=== PATIENT | male | born 1955 | race Caucasian/White ===

== ENCOUNTER 2018-11-22 06:10 | Inpatient (IN) | payer OTHER ==
[2018-11-22] VITALS (20 sets, daily range): BP systolic 147–198; BP diastolic 63–127
[~2018-11-22] VITALS: Ht 152.4 cm; Wt 74.8 kg
[2018-11-22] MEDS ORDERED: COREG25 MG PO (06:34)
[2018-11-22] MEDS ORDERED: SODIUM BICARB PO (06:34)
[2018-11-22] MEDS ORDERED: AMLODIPINE BESY10 MG PO (06:35)
[2018-11-22] MEDS ORDERED: ZANTAC 150MG T150 MG PO (06:35)
[2018-11-22] MEDS ORDERED: IMDUR 60 MG TAB60 M1 PO (06:35)
[2018-11-22] MEDS ORDERED: LIPITOR 20 MG T20 M1 PO (06:35)
[2018-11-22 06:45] LABS: HEMATOCRIT 37.5 % (42.0-52.0); HEMOGLOBIN 12.4 gm/dL (14.0-18.0); MCH 30.5 pg (26.0-34.0); MCHC 33.1 g/dL (28.0-37.0); MCV 92.1 fL (80.0-100.0); MPV 9.7 fl. (7.2-11.1); NUCLEATED RBCS 0 /100WBC; PLATELET COUNT* 339 thou/uL (150-400); RBC 4.07 mil/uL (4.50-6.00); RDW-CV 13.7 % (10.5-14.5); WBC 14.4 thou/uL (4.0-11.0)
[2018-11-22 07:02] LABS: CALCIUM 8.9 mg/dL (8.5-10.1)
[2018-11-22 07:05] LABS: INR 1.3; PROTIME 12.9 Seconds (9.20-11.50)
[2018-11-22 07:07] LABS: POTASSIUM 6.8 mmol/L (3.5-5.1)
[2018-11-22 07:09] LABS: ALBUMIN 3.6 g/dL (3.4-5.0); MAGNESIUM 1.8 mg/dL (1.8-2.4); TOTAL PROTEIN 8.5 g/dL (6.4-8.2); TROPONIN-I LEVEL 0.07 ng/mL (<0.06)
[2018-11-22 07:28] LABS: ABSOLUTE BASOPHILS 0.1 thou/uL (0.0-0.2); ABSOLUTE EOSINOPHILS 0.7 thou/uL (0.0-0.7); ABSOLUTE LYMPHOCYTES 1.3 thou/uL (0.8-5.3); ABSOLUTE MONOCYTES 0.6 thou/uL (0.0-1.2); ABSOLUTE NEUTROPHILS 11.7 thou/uL (1.6-8.1)
[2018-11-22 07:30] LABS: PLATELET ESTIMATE ADEQUATE
[2018-11-22 07:31] LABS: TOXIC GRANULATION 1+
[2018-11-22 09:57] LABS: CALCIUM 9.4 mg/dL (8.5-10.1); CREATININE 4.7 mg/dL (0.6-1.3); POTASSIUM 5.5 mmol/L (3.5-5.1)
--- NOTE | 2018-11-22 11:40 | NUR ---
PATIENT ADMITTED TO THE UNIT AT 1040. NO FAMILY PRESENT. ER KEMAL STATED THE WAS HERE BUT WALKED OFF TALKING ON A CELL PHONE AND DIDN'T RETURN. CHECKED ICU WAITING ROOM TWICE. PATIENT CONFUSED. ONLY ORIENTED TO PERSON AT THIS TIME. DENIES PAIN. CALM AND COOPERATIVE. ORIENTED TO ROOM. WATCHING TV. ADMISSION ASSESSMENT AND HISTORY COMPLETED TO BEST OF ABILITY AT THIS TIME. CONSULTS FOR NEPHROLOGY AND NEUROLOGY CALLED. PATIENT SCREENED POSITIVE FOR SEPSIS PROTOCOL. DR CATARINA SALAZAR, ORDERS GIVEN AND COMPLETED. PATIENT HAS AMPUTATED TOES TO LEFT FOOT AND WOUNDS TO TOES ON RIGHT FOOT. WOUND PHOTOS TAKEN. [facility].
--- NOTE | 2018-11-22 12:56 | NUR ---
UROLOGY IRON BENDER RETURNED CALL. SHE IS FIGURING OUT WHO WILL BE HERE TO PLACE CATHETER TODAY. PATIENT STILL UNABLE TO VOID, BLADDER SCAN READING 605.
--- NOTE | 2018-11-22 12:57 | EKG ---
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1955 Requested By: Debbi Enamorado Order Number: [id number] MD: Mart Hawkins Measurements Intervals [place] Rate: 47 P: [place]: QRS: 82 QRSD: 86 T: 133 QT: 520 QTc: 460 Interpretive Statements Sinus bradycardia Borderline right axis deviation RSR' in V1 or V2, probably normal variant Probable LVH with secondary repol abnrm No previous ECG available for comparison Electronically Signed On 11-22-2018 12:57:17 CDT by Mart Hawkins [email or web address] <ELECTRONICALLY SIGNED> By: Mart Hawkins MD, FACC 11/22/18 1257 [id number] 0656 Mart Hawkins MD, [facility] /EPI
[2018-11-22 15:35] LABS: URINE BILIRUBIN NEGATIVE (Negative); URINE BLOOD 3+ (Negative); URINE CLARITY CLEAR; URINE COLOR YELLOW; URINE GLUCOSE-RANDOM TRACE (Negative); URINE KETONES NEGATIVE (Negative); URINE LEUKOCYTES-REFLEX NEGATIVE (Negative); URINE NITRITE-REFLEX NEGATIVE (Negative); URINE PROTEIN 3+ (Negative); URINE UROBILINOGEN 0.2 E.U./dl (0.2-1.0)
[2018-11-22 15:47] LABS: BACTERIA-REFLEX None Seen /HPF (None Seen); CASTS None Seen /LPF (None Seen); CRYSTALS None Seen /LPF (None Seen); SQUAMOUS 0-3 Few /LPF (0-3); URINE RBC 0-2 Rare /HPF (0-2); URINE WBC-REFLEX 0-5 Rare /HPF (0-5)
[2018-11-22 15:57] LABS: AMP/METHAMP Negative (Negative); BARBITURATES Negative (Negative); BENZODIAZEPINES Negative (Negative); COCAINE Negative (Negative); METHADONE Negative (Negative); OPIATES Negative (Negative); PCP Negative (Negative); THC Negative (Negative)
--- NOTE | 2018-11-22 17:19 | NUR ---
PATIENT ASSESSMENT REMAINS UNCHANGED. PATIENT REMAINS ORIENTED TO SELF ONLY. NEUROLOGY ABLE TO SPEAK WITH PATIENT'S SIGNIFICANT OTHER. PATIENT BEGINNING TO HAVE THESE ISSUES SINCE SIGNIFICANT OTHER'S DAD . HAD STROKES IN THE PAST. RECORDS REQUESTED FROM [facility]. MRI OF HEAD TO BE COMPLETED THIS EVENING. PATIENT EATING DINNER, RELAXED AT THIS TIME.
[2018-11-23] VITALS (13 sets, daily range): BP systolic 147–174; BP diastolic 66–84
[2018-11-23 04:40] LABS: ABSOLUTE BASOPHILS 0.1 thou/uL (0.0-0.2); ABSOLUTE EOSINOPHILS 0.4 thou/uL (0.0-0.7); ABSOLUTE LYMPHOCYTES 0.8 thou/uL (0.8-5.3); ABSOLUTE NEUTROPHILS 6.5 thou/uL (1.6-8.1); BASOPHILS 1.3 %; EOSINOPHILS 4.2 %; HEMATOCRIT 27.5 % (42.0-52.0); LYMPHOCYTES 9.5 %; MCH 31.1 pg (26.0-34.0); MCHC 33.9 g/dL (28.0-37.0); MCV 91.7 fL (80.0-100.0); MONOCYTES 11.3 %; MPV 10.1 fl. (7.2-11.1); NUCLEATED RBCS 0 /100WBC; POLYS 73.7 %; RBC 2.99 mil/uL (4.50-6.00); RDW-CV 13.6 % (10.5-14.5); WBC 8.7 thou/uL (4.0-11.0)
[2018-11-23 05:01] LABS: HEMOGLOBIN 9.3 gm/dL (14.0-18.0); PLATELET COUNT* 221 thou/uL (150-400)
[2018-11-23 05:11] LABS: ALBUMIN 2.4 g/dL (3.4-5.0); CALCIUM 7.8 mg/dL (8.5-10.1); CREATININE 4.3 mg/dL (0.6-1.3); POTASSIUM 4.9 mmol/L (3.5-5.1); TOTAL BILIRUBIN 0.5 mg/dL (<0.1-1.0); TOTAL PROTEIN 5.6 g/dL (6.4-8.2)
--- NOTE | 2018-11-23 06:39 | NUR ---
Pt rested well overnight. One large loose stool early in shift. VSS. Still disoriented to place, time, situation. Pleasant and conversational; seems to recall remote events well. Inquired on at least two occasions if son was here. Will continue to monitor.
--- NOTE | 2018-11-23 09:50 | NUR ---
WOUND NURSE- PATIENT ADMITTED YESTERDAY WITH ALTERED MENTAL STATUS, HAD APPARENTLY BEEN FOUND ROAMING. HE REPORTS THAT THE ABRASIONS ON THE PLANTAR SURFACE OF BOTH FEET IS FROM WALKING FROM A BAR DOWNTOWN TO ONE OF THE [place], ALTHOUGH UNABLE TO SPECIFY WHEN. HE STATES THAT HE DID HAVE SHOES ON. HE HAS A HEALED METATARSAL AMPUTATION ON THE LEFT FOOT, WHICH HE REPORTS WAS PERFORMED IN AUGUST. WHEN ASKED IF DUE TO NON-HEALING WOUNDS, HE INSISTS THAT HE DID NOT, AND "WAS JUST TOLD THAT THEY (TOES) NEEDED TO COME OFF". RIGHT FOOT WITH SMALLER ABRASION ON DORSUM OF GREAT TOE, 1.2 X 0.6 X 0.1 CM. SLIGHTLY LARGER ABRASION ON PLANTAR SURFACE OF GREAT TOE, 1.8 X 1.4 X 0.1 CM. LEFT FOOT WITH ABRASION ON PLANTAR ASPECT OF FOOT AT 5TH METATARSAL HEAD, 1.8 X 0.6 X 0.1 CM. ALL WOUNDS DARK PINK, NO NECROTIC TISSUE, VERY MINIMAL SEROSANGUINEOUS DRAINAGE, NO ODOR. SURROUNDING SKIN PINK AND INTACT, LEFT FOOT SLIGHTLY MACERATED DUE TO BANDAID IN PLACE. NO ERYTHEMA, INDURATION OR FLUCTUANCE. ALL AREAS NON-TENDER. NO PEDAL EDEMA, FAINTLY PALPABLE PEDAL PULSES BILATERALLY. HEELS INTACT, NO ERYTHEMA. RIGHT FOOT WITH MODERATE AMOUNT OF DRIED DRAINAGE AND DIRT ON FOOT. BOTH FEET CLEANSED WELL WITH SKIN CLEANSER, RINSED WELL, WOUNDS IRRIGATED WITH SALINE AND OPEN AREAS COVERED WITH SMALL PIECE OF AQUACEL AG, SECURED WITH FOAM BORDERED DRESSINGS. MOISTURIZER TO INTACT SKIN, LEGS ELEVATED ON PILLOW WITH HEELS SUSPENDED OFF OF BED. BRIEFLY DISCUSSED WOUND CARE, PATIENT REMAINS SOMEWHAT CONFUSED. PLAN- -REMIND/ASSIST PATIENT TO CHANGE POSITION FREQUENTLY. -KEEP LEGS ELEVATED ON PILLOWS, HEELS SUSPENDED OFF OF BED. -WOUND CARE ORDERED.
--- NOTE | 2018-11-23 14:38 | CON ---
[address] [address] CONSULTATION Name: VAMSIDOT CUEVAS Room: [address] ADM IN M.R.#: [id number] Admission: 11/22/18 Attend Phys: Shawn Garcia MD Discharge: Date of : 59 Report #: [id number] THIS REPORT FOR: //name// CC: Shawn Garcia [facility] physician/PCP DATE OF SERVICE: 11/22/2018 REQUESTING PHYSICIAN: Dr. Rajput. REASON FOR CONSULTATION: Acute kidney injury. HISTORY OF PRESENT ILLNESS: The patient is a 63-year-old gentleman, who was brought here by the police because he was confused. Apparently, his called the police, but is not here and she does not provide us any history. Based on his medications and his findings, we can guess that he has chronic kidney disease, unknown stage due to probably diabetes, he also has diabetes mellitus type 2 and hypertension. I am not able to guess any other medical conditions at this point. Hopefully, at some point, will come and will talk to us and will provide more medical history. When he was evaluated in the Emergency Room, he was found to have lactic acidosis. He was hyperkalemic, potassium was 6.8, it is down to 5.5 now. His creatinine was 5.0, it is down to 4.7 now. Carbon dioxide was 16, is up to 20 now. He had lactic acidosis, original level was 8.0, now is down to 1.2. His white count was 14.4 thousand with 81% segs. His urinalysis was not received. His chest x-ray was unremarkable except for possible right lower lobe atelectasis versus pneumonitis. He was started on IV fluids here. He has given IV Protonix, IV Rocephin. PAST MEDICAL HISTORY: Again, best of our understanding, he has: 1. Chronic kidney disease, unknown stage. 2. Diabetes mellitus type 2. 3. Hypertension. SOCIAL HISTORY: Unknown. FAMILY HISTORY: Unknown. REVIEW OF SYSTEMS: Unreliable due to his confusion. PHYSICAL EXAMINATION: GENERAL: The patient is alert, awake, but totally disoriented. VITAL SIGNS: His blood pressure is 180/80, [place] 63[place] [address] CONSULTATION Name: DOT AGUSTIN Room: [address] IN [facility].#: [id number] Admission: 11/22/18 Attend Phys: Shwan Garcia MD Discharge: Date of : 59 Report #: [id number] HEENT: Pupils are round. NECK: Supple. LUNGS: Clear. CARDIOVASCULAR: Regular rate. ABDOMEN: Soft. EXTREMITIES: Lower extremities, no edema. He has abrasion to the base of the fifth metatarsal on the left and abrasion to the base of the first metatarsal on the right. ASSESSMENT: 1. Chronic kidney disease, unknown stage, likely stage 3/4. 2. Acute kidney injury likely due to volume depletion. 3. Hyperkalemia, likely due to acute kidney injury. 4. Hypertension. 5. Diabetes mellitus type 2. 6. Peripheral artery disease. PLAN: 1. Continue with IV fluids. 2. Obtain CT of his abdomen without contrast. 3. Try to obtain medical records and contact the family. Discussed with ICU nurse. More than 35 minutes spent on this consultation. <ELECTRONICALLY SIGNED> By: Rafi Stanton MD 11/23/18 1438 1157 [id number] Stanton MD /[facility]
--- NOTE | 2018-11-23 17:50 | NUR ---
PATIENT ASSESSMENT REMAINS STABLE. ORIENTED TO PERSON ONLY. SLEPT ON AND OFF MOST OF SHIFT. DENIES PAIN/ACUTE ISSUES. GOOD APPETITE. NO NEW CONCERNS NOTED.
[2018-11-24 00:08] VITALS: BP 162/69
[2018-11-24 03:55] LABS: ABSOLUTE BASOPHILS 0.1 thou/uL (0.0-0.2); ABSOLUTE EOSINOPHILS 0.5 thou/uL (0.0-0.7); ABSOLUTE MONOCYTES 0.7 thou/uL (0.0-1.2); ABSOLUTE NEUTROPHILS 5.3 thou/uL (1.6-8.1); BASOPHILS 1.2 %; EOSINOPHILS 7.1 %; HEMATOCRIT 26.8 % (42.0-52.0); HEMOGLOBIN 9.1 gm/dL (14.0-18.0); LYMPHOCYTES 12.5 %; MCH 31.2 pg (26.0-34.0); MCHC 34.1 g/dL (28.0-37.0); MCV 91.5 fL (80.0-100.0); MONOCYTES 9.8 %; MPV 10.1 fl. (7.2-11.1); NUCLEATED RBCS 0 /100WBC; PLATELET COUNT* 211 thou/uL (150-400); POLYS 69.4 %; RBC 2.93 mil/uL (4.50-6.00); RDW-CV 13.8 % (10.5-14.5); WBC 7.6 thou/uL (4.0-11.0)
[2018-11-24 04:05] VITALS: BP 167/74
[2018-11-24 04:27] LABS: ALBUMIN 2.3 g/dL (3.4-5.0); CALCIUM 7.3 mg/dL (8.5-10.1); CREATININE 4.4 mg/dL (0.6-1.3); MAGNESIUM 1.4 mg/dL (1.8-2.4); PHOSPHORUS* 3.8 mg/dL (2.5-4.9); POTASSIUM 4.4 mmol/L (3.5-5.1); TOTAL BILIRUBIN 0.3 mg/dL (<0.1-1.0); TOTAL PROTEIN 5.9 g/dL (6.4-8.2)
--- NOTE | 2018-11-24 06:00 | NUR ---
Received report and assumed care of patient approx 1914. Patient at time of report was alert and oriented to self only. However, as night has progressed, this morning he is oriented to person, place, and partially situation. unable to state current year. Patient denies pain and discomfort this shift. Viveros remains intact, and draining to DD light yellow urine. Patient voices no concerns and has been very pleasant. Call light within reach
[2018-11-24 08:00] VITALS: BP 183/81
--- NOTE | 2018-11-24 10:03 | NUR ---
RECEIVED REPORT FROM DU AND ASSUMED CARE OF PT @ 9167.PT IS A/O X3 BUT CONFUSED AND FORGETFUL AT TIMES. VSS,TRACING SB ON THE MONITOR.IV PATENT WITH IV FLUIDS INFUSING PER ORDERS.PT IS CALM AND COOPERATIVE WITH NO C/O PAIN.CALL LIGHT AND FALL PRECAUTIONS IN PLACE.WILL CONTINUE TO MONITOR.
[2018-11-24 12:06] VITALS: BP 122/62
--- NOTE | 2018-11-24 14:59 | NUR ---
Pt is A&O, some confusion. Pt states that he lives at home with his . completes IADLS and assists Pt with ADLs. Pt states that he can barely ambulate, and uses a walker. No other DME. No hx of HH or SNF. Pt is hopeful that he will be able to [place]. [facility] to assess Pt for [place] NASEEM. CM attempted to contact Pt's , left VM. Following.
[2018-11-24 16:11] LABS: GLYCOHEMOGLOBIN (HGB A1C) 5.4 % (4.8-5.6)
[2018-11-24 16:16] VITALS: BP 142/68
--- NOTE | 2018-11-24 17:35 | EKG ---
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1955 Requested By: Wan Holman Order Number: [id number] MD: Mart Hawkins Measurements Intervals [place] Rate: 51 P: 53 TN: 167 QRS: 46 QRSD: 85 T: 132 QT: 462 QTc: 426 Interpretive Statements Sinus rhythm Probable LVH with secondary repol abnrm Compared to ECG 11/22/2018 06:56:04 Sinus bradycardia no longer present Electronically Signed On 11-24-2018 17:35:46 CDT by Mart Hawkins [email or web address] <ELECTRONICALLY SIGNED> By: Mart Hawkins MD, [facility] 11/24/18 1735 1329 1329 Mart Hawkins MD, [facility] /EPI
--- NOTE | 2018-11-24 18:42 | NUR ---
PT CONTINUE TO BE SB ON THE MONITOR.CARVEDILOL HELD THIS EVENING.NO C/O PAIN.IV'S PATENT WITH IV FLUIDS INFUSING PER ORDERS.IV ANTIBIOTICS GIVEN.JOSEPH SECURE AND PATENT.HOURLY ROUNDING COMPLETED FOR PT SAFETY.CALL LIGHT AND FALL PRECAUTIONS IN PLACE. WILL CONTINUE TO MONITOR FOR DURATION OF SHIFT.
--- NOTE | 2018-11-24 20:00 | NUR ---
RECEIVED REPORT AND ASSUMED CARE OF PT, ASSESSMENT COMPLETED. PT CONFUSED BUT PLEASANT AND COOPERATIVE. WOUND TO RT FOOT NOTED WITH FOAM DRSG INTACT. TELEMETRY ON SHOWING SB. WILL CONT TO MONITOR AND ASSIST NEEDED.
--- NOTE | 2018-11-25 | NUR ---
TELEMETRY REMOVED AND CHANGED TO MED/SURG PT ORDERED.
[2018-11-25 00:40] VITALS: BP 150/70
[2018-11-25 05:17] LABS: CREATININE 4.8 mg/dL (0.6-1.3); MAGNESIUM 1.8 mg/dL (1.8-2.4); PHOSPHORUS* 3.8 mg/dL (2.5-4.9); POTASSIUM 4.3 mmol/L (3.5-5.1)
[2018-11-25 05:43] LABS: CHOLESTEROL 73 mg/dL (<200); HDL CHOLESTEROL 33 mg/dL (>40); LDL CHOLESTEROL 31 mg/dL (<100); SERUM ASSESSMENT Clear; TC:HDL 2.2 Ratio (Not establshd); TRIGLYCERIDE 48 mg/dL (<150); VLDL 10 mg/dL (<40)
--- NOTE | 2018-11-25 05:55 | NUR ---
SLEPT WELL TONIGHT. NO CHANGE IN ASSESSMENT. HS GOALS OF REST AND SAFETY ACHIEVED. HOURLY ROUNDING OBSERVED.
[2018-11-25 08:00] VITALS: BP 171/78
--- NOTE | 2018-11-25 10:34 | NUR ---
RECEIVED REPORT FORM JOSE ENRIQUE AND ASSUMED CARE OF PT @ 8086.PT A/O X3 AND CONFUSED.VSS,MED-SURG STATUS,JOSEPH SECURE AND PATENT.IV PATENT WITH IV FLUIDS INFUSING PER ORDERS.PT IS CALM AND COOPERATIVE WITH NO C/O PAIN.PT IS UP WITH SBA TO BATHROOM.CALL LIGHT AND FALL PRECAUTIONS IN PLACE.WILL CONTINUE TO MONITOR.
[2018-11-25 16:25] VITALS: BP 162/64
--- NOTE | 2018-11-25 17:39 | NUR ---
VSS.MED-SURG STATUS.PT REMAINS ON ROOM AIR.PT PROGHRESSING TOWARDS GOALS.IV PATENT WITH IVF INFUSING PER ORDERS.NO C/O PAIN.PT REMAINS CONFUSED BUT COOPERATIVE.HOURLY ROUNDING COMPELTED FOR PT SAFETY.CALL LIGHT AND FALL PRECAUTIONS IN PLACE.WILL CONTINUE TO MONITOR FOR DURATION OF SHIFT.
[2018-11-25 20:00] VITALS: BP 155/68
[2018-11-26] VITALS: BP 152/73
--- NOTE | 2018-11-26 06:08 | NUR ---
ASSUMED CARE OF PT AFTER REPORT AT 1930. PT A&OX2. NOT ORIENTED TO PLACE AND TIME. VSS. PHYSICAL ASSESSMENT COMPLETED AND CHARTED. PT ON RA WITH 97% O2 SAT. PT ON MEDSURG STATUS. PT WITH JOSEPH TO DEPENDENT DRAIN. PT RESTED WELL ON BED. CALL LIGHT WITHIN REACH
[2018-11-26 06:32] LABS: ALBUMIN 1.9 g/dL (3.4-5.0); CALCIUM 7.3 mg/dL (8.5-10.1); CREATININE 4.9 mg/dL (0.6-1.3); PHOSPHORUS* 3.7 mg/dL (2.5-4.9); POTASSIUM 4.4 mmol/L (3.5-5.1)
[2018-11-26 08:00] VITALS: BP 163/80
--- NOTE | 2018-11-26 08:00 | NUR ---
ASSUMED PT ARE AT 0700, PT LYING IN BED, FALL PRECAUTIONS IN PLACE. A&O TO SELF AND SITUATION BUT UNABLE TO STATE DATE OR PLACE. UP WITH ASSIST X1 AND WALKER, LS CTA, VSS, RA, MED SURG STATUS. JOSEPH CATH PATENT AND DRAINING LIGHT YELLOW URINE. WOUNDS TO LEFT AND RIGHT FOOT, DRESSING IN PLACE. PT DENIES ANY PAIN OR SOA AT THIS TIME. WILL CONT POC.
[2018-11-26 16:35] VITALS: BP 151/68
--- NOTE | 2018-11-26 19:21 | NUR ---
PT UP WITH WALKER AND PT THIS SHIFT, A&O X2-3, VSS, CONT ON MED SURG STATUS, HOURLY ROUNDING COMPLETED. ALL MEDS GIVEN DIRECTED, ASSESSMENT CHARTED.
[2018-11-26 20:00] VITALS: BP 159/79
[2018-11-27 04:00] VITALS: BP 161/71
[2018-11-27 05:09] LABS: ABSOLUTE BASOPHILS 0.1 thou/uL (0.0-0.2); ABSOLUTE EOSINOPHILS 0.6 thou/uL (0.0-0.7); ABSOLUTE LYMPHOCYTES 1.2 thou/uL (0.8-5.3); ABSOLUTE MONOCYTES 0.8 thou/uL (0.0-1.2); ABSOLUTE NEUTROPHILS 3.9 thou/uL (1.6-8.1); BASOPHILS 1.8 %; EOSINOPHILS 9.1 %; HEMATOCRIT 23.7 % (42.0-52.0); HEMOGLOBIN 8.1 gm/dL (14.0-18.0); LYMPHOCYTES 17.4 %; MCH 31.1 pg (26.0-34.0); MCHC 34.1 g/dL (28.0-37.0); MCV 91.3 fL (80.0-100.0); MPV 9.7 fl. (7.2-11.1); NUCLEATED RBCS 0 /100WBC; PLATELET COUNT* 236 thou/uL (150-400); POLYS 59.7 %; RBC 2.59 mil/uL (4.50-6.00); RDW-CV 13.6 % (10.5-14.5); WBC 6.6 thou/uL (4.0-11.0)
[2018-11-27 05:20] LABS: CALCIUM 7.6 mg/dL (8.5-10.1); CREATININE 4.7 mg/dL (0.6-1.3); POTASSIUM 4.2 mmol/L (3.5-5.1)
--- NOTE | 2018-11-27 05:40 | NUR ---
ASSUMED CARE OF PT AFTER REPORT AT 1930. PT A&OX2. NOT ORIENTED TO PLACE AND TIME. FORGETFUL & CONFUSED AT TIMES. VSS. PHYSICAL ASSESSMENT COMPLETED AND CHARTED. PT ON RA. PT ON MEDSURG STATUS. PT WITH JOSEPH TO DEPENDENT DRAIN. PT DENIES ANY PAIN OR DISCOMFORT. HOURLY ROUNDING OBSERVED. CALL LIGHT WITHIN REACH.
[2018-11-27 08:00] VITALS: BP 166/75
[2018-11-27 17:25] VITALS: BP 150/72
--- NOTE | 2018-11-27 17:50 | NUR ---
A&O X2-3, VSS, RA, REMAINS MED SURG STATUS, UP WITH ASSIST X1 AND WALKER. JOSEPH CATH PATENT AND DRAINING LIGHT YELLOW URINE, CREAT LEVEL TRENDING DOWN. HOURLY ROUNDING COMPLETED, ASSESSMENT COMPLETED AND DOCUMENTED.
[2018-11-27 20:00] VITALS: BP 161/73
[2018-11-28 04:00] VITALS: BP 165/68
[2018-11-28 05:23] LABS: ABSOLUTE BASOPHILS 0.1 thou/uL (0.0-0.2); ABSOLUTE EOSINOPHILS 0.6 thou/uL (0.0-0.7); ABSOLUTE LYMPHOCYTES 1.2 thou/uL (0.8-5.3); ABSOLUTE MONOCYTES 0.8 thou/uL (0.0-1.2); ABSOLUTE NEUTROPHILS 4.2 thou/uL (1.6-8.1); BASOPHILS 1.8 %; EOSINOPHILS 8.7 %; HEMATOCRIT 23.8 % (42.0-52.0); HEMOGLOBIN 8.3 gm/dL (14.0-18.0); LYMPHOCYTES 17.1 %; MCH 31.5 pg (26.0-34.0); MCHC 34.8 g/dL (28.0-37.0); MCV 90.6 fL (80.0-100.0); MONOCYTES 11.5 %; MPV 9.5 fl. (7.2-11.1); NUCLEATED RBCS 0 /100WBC; PLATELET COUNT* 254 thou/uL (150-400); POLYS 60.9 %; RBC 2.62 mil/uL (4.50-6.00); RDW-CV 13.8 % (10.5-14.5); WBC 6.8 thou/uL (4.0-11.0)
[2018-11-28 05:54] LABS: CALCIUM 7.8 mg/dL (8.5-10.1); CREATININE 4.8 mg/dL (0.6-1.3); PHOSPHORUS* 3.7 mg/dL (2.5-4.9); POTASSIUM 4.3 mmol/L (3.5-5.1)
--- NOTE | 2018-11-28 06:33 | NUR ---
ASSUMED CARE OF PT AFTER REPORT AT 1930. PT A&OX4. FORGETFUL. CONFUSED AT TIMES. VSS. PHYSICAL ASSESSMENT COMPLETED AND CHARTED. PT ON RA. PT ON MEDSURG STATUS. PT WITH JOSEPH TO DEPENEDENT DRAIN. PT DENIES ANY PAIN OR DISCOMFORT. NIH CHARTED. PT RESTED WELL ON BED. CALL LIGHT WITHIN REACH.
[2018-11-28 11:58] VITALS: BP 170/82
[2018-11-28 14:30] VITALS: BP 145/89
--- NOTE | 2018-11-28 15:18 | NUR ---
ASSUMED CARE OF PATIENT THIS AM AT 0730. PATIENT WAS DROWSY THIS AM BUT EASILY AWAKENED. HE DENIES PAIN. MEDICATIONS GIVEN PER ORDER. PATIENT HAS BEEN SLEEPING OFF AND ON TODAY. OPAL IS TO DD. PATIENT SAID THAT HE IS EAGER FOR DISCHARGE, HOWEVER HE HAS NOT BEEN ABLE TO CONTACT ANY OF HIS FAMIY MEMBERS. ACCUCHECKS HAVE BEEN LESS THAN 150. PATIENT HAS BEEN UP WITH ASSIST. BED ALARM IS N AND CALL LIGHT IS IN REACH.
[2018-11-28 20:00] VITALS: BP 166/77
[2018-11-29] VITALS: BP 167/75
[2018-11-29 05:14] LABS: HEMATOCRIT 25.2 % (42.0-52.0); HEMOGLOBIN 8.9 gm/dL (14.0-18.0); MCH 31.9 pg (26.0-34.0); MCHC 35.2 g/dL (28.0-37.0); MCV 90.9 fL (80.0-100.0); MPV 8.8 fl. (7.2-11.1); RBC 2.78 mil/uL (4.50-6.00); RDW-CV 13.8 % (10.5-14.5); WBC 8.9 thou/uL (4.0-11.0)
[2018-11-29 05:42] VITALS: BP 159/68
[2018-11-29 05:42] LABS: ALBUMIN 2.2 g/dL (3.4-5.0); CREATININE 5.1 mg/dL (0.6-1.3); MAGNESIUM 1.6 mg/dL (1.8-2.4); PHOSPHORUS* 3.5 mg/dL (2.5-4.9); POTASSIUM 4.4 mmol/L (3.5-5.1); TOTAL BILIRUBIN 0.4 mg/dL (<0.1-1.0)
--- NOTE | 2018-11-29 06:43 | NUR ---
PT ALERT CONFUSED. AT 0215 PT NOTED TO BE OUT OF ROOM. PT SEEN IN PARKING LOT AREA. HOUSE SUPP, CHARGE NURSE, SECURITY NOTIFIED. PT RETURN TO ROOM AT 0315. REASSESSED AND FOUND UNCHGD FROM INITAL ASSESSMENT.
[2018-11-29 08:09] VITALS: BP 173/83
--- NOTE | 2018-11-29 09:57 | NUR ---
ASSUMED CARE OF PT THIS AM AROUND 714-MS STATUS IN PLACE INDICATED- UPON ASSESSMENT PT NOTED TO BE RESTING IN BED- PT A&O X2 WITH NOTED INTERMITENT CONFUSSION NOTED- SBA WITH TRANSFERS USING RW- CONTINENT OF BOWEL, JOSEPH IN PLACE, D/D CLEAR YELLOW URINE- LCTA, RESP EVEN AND UN-LABORED- VSS, O2 SAT 97% ON RA- ABD SOFT/ROUND/NON-TENDER, BS X4 QUADS- LAST BM REPORTED 11/28/18- IV NOTED TO RIGHT HAND INTACT AND SL- NIH THIS AM NOTED AT 2- GOOD PO INTAKE NOTED THIS AM, BS MONITORED ORDERED- WORKING WITH THERPIES PRESCIBED. TOLERTAING WELL- DENIES ANY C/O PAIN/DISCOMFORT AT THIS TIME- CALL LIGHT AND PERSONAL BELONGINGS WITH IN REACH- HOURLY ROUNDS IN PLACE R/T SAFETY/NEEDS- ALL NEEDS MET AT THIS TIME-WCTM
[2018-11-29 12:45] VITALS: BP 167/76
--- NOTE | 2018-11-29 13:30 | NUR ---
Nutrition: screen for LOS. Pt noted to be somewhat confused. Nsg reported good po intake this am, no other intake records. Wt up from admit. Albumin ang LFT's low. Meds reviewed. Pt with wounds to rt foot, awaiting evaluation. Physician noted malnutrition, defer dx. Assessed at low nutrition risk at this time. Rec offer snacks/supplements PRN.
[2018-11-29 16:30] VITALS: BP 135/69
--- NOTE | 2018-11-29 17:14 | NUR ---
ASSUMED CARE AT 1550, PT TRANSFERRED FROM ROOM 204. REPORT FROM BART COKER. PT IS ALERT AND DENIES PAIN. IV ABX INFUSING. PT IS ON ROOM AIR, VSS. ACCU CHECK ACHS. NIH SCALE DONE QS. PT IS FALL RISK, BED ALARM ON. PT IS UP STANDBY ASSIST. IV IN RIGHT HAND, SL. SIMPSONEY IN PLACE WITH ADEQAUTE OUTPUT. SEE ASSESSMENT AND VITALS FOR OTHER DETAILS. CALL LIGHT WITHIN REACH. WILL CONTINUE PLAN OF CARE
[2018-11-29 21:00] VITALS: BP 157/75
[2018-11-30] VITALS: BP 149/67
[2018-11-30 04:03] VITALS: BP 158/71
[2018-11-30 04:43] LABS: HEMATOCRIT 22.8 % (42.0-52.0); HEMOGLOBIN 7.9 gm/dL (14.0-18.0); MCH 31.5 pg (26.0-34.0); MCHC 34.7 g/dL (28.0-37.0); MCV 90.6 fL (80.0-100.0); MPV 9.4 fl. (7.2-11.1); RBC 2.51 mil/uL (4.50-6.00); RDW-CV 13.7 % (10.5-14.5); WBC 6.5 thou/uL (4.0-11.0)
[2018-11-30 04:47] LABS: CALCIUM 7.6 mg/dL (8.5-10.1); PHOSPHORUS* 3.4 mg/dL (2.5-4.9); POTASSIUM 4.1 mmol/L (3.5-5.1)
--- NOTE | 2018-11-30 05:49 | NUR ---
PT ALERT AND ORIENTED. CONFUSED AND FORGETFUL. PT SLEPT THROUGH SHIFT. MEDS GIVEN PER EMAR. PT TO JOSEPH FOR URINE. PT DID NOT GET OUT OF BED THIS SHIFT. FALL PRECAUTION IN PLACE. HOURLY ROUNDINGS MADE. CALL LIGHT WITHIN REACH. WILL CONTINUE TO MONITOR.
[2018-11-30 07:12] VITALS: BP 161/73
--- NOTE | 2018-11-30 15:00 | NUR ---
CM SPOKE WITH PT. HE WAS ALERT. EXPLAINED WE HAD NOT BEEN ABLE TO GET AHOLD OF HIS S.O.,IMAN. THIS CM TRIED TODAY AT NUMBER LISTED AND SAID VOIC MAIL BOX WAS FULL. HE SAID SHE DIDN'T HAVE ANY OTHER NUMBER TO GET AHOLD OF HER. ASKED IF THERE WAS ANYONE I COULD CONTACT. HE SAID HIS DAUGHTER GOES TO SCHOOL. ASKED HOW OLD SHE WAS. HE SAID 11. HE THEN PULLED OUT A PIECE OF PAPER FROM HIS GOWN POCKET. IT HAD HIS DAD'S NUMBERS (2), HIS SISTER VANITA AND S-I-L,SELVIN. HE SAID VANITA CAN'T SPEAK. TRIED CALLING SELVIN AT [phone]-MESSAGE SAID SHE WAS NOT ACCEPTING CALLS AT THIS TIME. TRIED HIS DAD-KASANDRA'S [phone] SAID VM BOX WAS FULL. SECOND [phone] WAS A GENERIC VM. I LEFT A BRIEF MESSAGE ASKING HIM TO CALL ME. DID NOT LEAVE PT.INFORMATION ON VM. CM CALLED [employer]. HE HAD EMAILED ASKING IF ANYONE IN FAMILY HAD DPOA. TOLD HIM TO MY KNOWLEDGE THEY DID NOT. EXPLAINED THE INABILITY TO GET AHOLD OF ANYONE AT NUMBERS LISTED ABOVE.
--- NOTE | 2018-11-30 15:28 | NUR ---
ASSESSMENT COMPLETE. PT HAS NOT HAD ANY CONCERNS THROUGHOUT THE DAY. DRESSING CHANGES DONE. PT HAD SHOWER THIS AM. ACCU CHECK ACHS. PT IS FALL RISK, BED ALARM ON. JOSEPH IN PLACE WITH ADEQUATE OUTPUT. DENIES PAIN AND N/V. SEE ASSESSMENT AND VITALS FOR OTHER DETAILS. CALL LIGHT WITHIN REACH, WILL CONTINUE PLAN OF CARE
[2018-11-30 15:39] VITALS: BP 140/68
[2018-11-30 19:30] VITALS: BP 149/76
[2018-12-01 04:20] LABS: ALBUMIN 2.1 g/dL (3.4-5.0); CALCIUM 7.6 mg/dL (8.5-10.1); PHOSPHORUS* 3.9 mg/dL (2.5-4.9); POTASSIUM 4.2 mmol/L (3.5-5.1)
--- NOTE | 2018-12-01 05:21 | NUR ---
PT ALERT AND ORIENTED THIS SHIFT. PT LESS CONFUSED THAN PREVIOUS NIGHT. VSS ON RA. PT SLEPT MOST OF SHIFT. PT UNAHPPY THAT HE HAVEN'T HEARD FROM . I CALLED 'S PHONE NUMBER SEVERAL TIMES BUT NO ANSWER. VOICE MSG FULL, SO I COULDN'T LEAVE A MSG. MEDS GIVEN PER EMAR. CALL LIGHT WITHIN REACH. PT VERY COOPERATIVE AND PLEASANT. HOURLY ROUNDINGS MADE. WILL CONTINUE TO MONITOR.
[2018-12-01 08:00] VITALS: BP 163/77
--- NOTE | 2018-12-01 15:41 | NUR ---
ATTEMPTED TO CALL DANNY/S.O. AT [phone]. MESSAGE SAID VOICE MAIL BOX WAS FULL. WAS ABLE TO REACH PT.S FATHER,KASANDRA AT [phone]. HE WAS HARD OF HEARING. MANY CHILDREN SCREAMING,YELLING IN THE BACKROUND. HE PUT SELVIN ON THE PHONE. SHE SAID SHE IS PT.'S SISTER. CORRECT PHONE NUMBER FOR HER IS [phone]. SHE WAS AWARE HER BROTHER WAS IN THE HOSPITAL. EXPLAINED WE COULD NOT GET AHOLD OF DANNY. SHE SAID SHE WOULD TRY TO CALL HER. SELVIN CALLED BACK AND SAID HER DAD SAID DANNY DID NOT WANT PT.AT HER HOUSE ANYMORE. SHE SAID DAD HAS AN EXTRA ROOM THAT PT.COULD STAY IN. SELVIN LIVES THERE ALSO . SHE WORKS FROM [employer]. SHE GOT OFF EARLY TODAY. SHE RUNS THE HOUSE-CLEANS,COOKS, SHOPS ETC. TOLD HER PT.MAY BE READY FOR DISCHARGE EARLY TOMORROW. SHE SAID SHE WOULD TRY TO CALL ON HER BREAK TOMORROW. ASKED SELVIN ABOUT THE 11 YR OLD DAUGHTER, PT.MENTIONED TO ME YESTERDAY. SHE SAID SHE IS DANNY'S DAUGHTER BUT NOT HER BROTHER'S BIOLOGICAL CHILD. HE HAS BEEN WITH DANNY FOR QUITE AWHILE AND THE GIRL CALLS PT.DAD AND PT.CALLED HER HIS DAUGHTER. CM WILL FOLLOW.
--- NOTE | 2018-12-01 16:03 | NUR ---
SHIFT NOTE - PT RESTING IN BED. PT WORKED WITH PT THIS AM. OPAL TO ANDRADE. BED ALARM ON. WILL CONTINUE TO MONITOR.
[2018-12-01 16:38] VITALS: BP 155/71
--- NOTE | 2018-12-01 17:40 | CON ---
[address] [address] CONSULTATION Name: DOT AGUSTIN Room: [address] IN M.R.#: [id number] Admission: 11/22/18 Attend Phys: Shawn Garcia MD Discharge: Date of : 59 Report #: [id number] THIS REPORT FOR: //name// CC: Shawn Garcia [facility] physician/PCP DATE OF SERVICE: 11/22/2018 HISTORY OF PRESENT ILLNESS: The patient is a 63-year-old male with confusion. I spoke to the patient and he told me that he is homeless, that his and her son put him out of the house. I then spoke with his partner who told me that they have been together for 13 years. He is not homeless and no one has put him out of the house. In fact, her son does not even live in the home. He lives in [place]. The patient's partner has an 11-year-old daughter. She states that in July after her father , the patient became very confused. The patient and her father were not very close. However, after that he seemed to change. In fact, he was even seen at [facility]. Some type of imaging study was done and showed a small stroke, but they were told that this small stroke would not cause the problems that he was having. The patient's partner states that that sometimes during the day, he seems to be perfectly normal and then by the evening, he gets more confused. In fact, her mother came to visit and he invited her in the home even though she was already standing inside the house. She states that he has a list of things wrong with him including congestive heart failure and peripheral vascular disease. He lost his toes on his left foot to peripheral vascular disease. He did have diabetes, but his last hemoglobin A1c was in a normal range, so he is no longer on medication. She attributes this to not allowing him to eat sweets. She is very concerned about him and was tearful on the phone. PAST MEDICAL HISTORY: Peripheral vascular disease, hyperlipidemia, congestive heart failure, stroke. PAST SURGICAL HISTORY: Unknown. MEDICATIONS: Coreg 25 mg b.i.d., isosorbide 60 mg daily, ranitidine 150 mg b.i.d., atorvastatin 20 mg at bedtime, amlodipine 10 mg daily. ALLERGIES: None. VITAL SIGNS: Temperature 36.8, pulse rate 65, respiratory rate 26, blood pressure 177/70, bedside pulse oximetry 96% on 2 [place] [address] CONSULTATION Name: DOT AGUSTIN Room: [address]#: [id number] Admission: 11/22/18 Attend Phys: Shawn Garcia MD Discharge: Date of : 59 Report #: [id number] LABORATORY DATA: Hematology: White blood cell count 14.4, hemoglobin 12.4, hematocrit 37.5, MCV 92.1, platelet count 339,000. INR 1.3. Urinalysis 3+ protein, 3+ blood, trace glucose. Chemistry: Sodium 140, potassium 5.5, chloride 108, carbon dioxide 20, BUN 30, creatinine 4.7, GFR 13, glucose 114. DIAGNOSTIC DATA: Imaging studies of the head and spine show moderate microvascular disease and several lacunar infarcts in the left frontal horn and right central cerebellar head region. All of these changes are chronic. He has also had imaging studies of the cervical spine, thoracic and lumbar spine. There is nothing other than degenerative changes seen. NEUROLOGIC: The patient knew that it was 2019. He did not know what city he was in, but knew that he was in [place] and in the [place]. Immediate recall was 3/3 objects, remote recall was 1/3 objects. He was able to spell "world" forwards, but transposed the "r" when spelling it backwards. Cranial nerves 2-12 are grossly intact. Motor exam demonstrates symmetrical strength in the extremities. The right plantar response is mute. The left toe is absent. Coordination and gait were not tested. IMPRESSION: This patient either has dementia or it is possible that he could also have a severe depression. He mentioned to me several times that he thinks he is here in the hospital to be put down. His partner also told me that he had mentioned some other morbid things to her as well. I am going to do a dementia workup with B12 and TSH, but he may need a Telepsychiatry consult as well. I have also ordered an electroencephalogram. For example, if the electroencephalogram were normal, there is the possibility that there is significant component of depression. However, if the electroencephalogram demonstrates slowing, then this is more supportive of a diagnosis of dementia and of course, he could have both dementia and depression. I thank you for your kind referral of the patient. Dr. Jha will be following the patient as of Wednesday. <ELECTRONICALLY SIGNED> By: Saida Whitmore DO 12/01/18 1740 1604 020Tab Whitmore DO /nt
[2018-12-01 19:50] VITALS: BP 150/71
--- NOTE | 2018-12-02 04:30 | NUR ---
PATIENT HAS REMAINED ALERT AND ORIENTED X 2-3 THIS SHIFT AND RESTING QUIETLY ON HOURLY ROUNDS. TURNING SELF IN BED. HAS NOT BEEN UP. DRESSING LEFT FOOT CLEAN AND DRY. NO PAIN REPORTED. IV ANTIBIOTICS PER ORDERS. VITAL SIGNS STABLE. CONTINUE TO MONITOR.
[2018-12-02 05:59] LABS: ALBUMIN 2.2 g/dL (3.4-5.0); CALCIUM 7.9 mg/dL (8.5-10.1); CREATININE 5.7 mg/dL (0.6-1.3); PHOSPHORUS* 4.3 mg/dL (2.5-4.9); POTASSIUM 4.4 mmol/L (3.5-5.1)
[2018-12-02 07:35] VITALS: BP 170/76
[2018-12-02 16:45] VITALS: BP 144/68
--- NOTE | 2018-12-02 17:00 | NUR ---
ASHER SPOKE WITH PT. EARLIER TODAY. TOLD HIM I STILL COULD NOT GET AHOLD OF HIS S.O. BUT I DID SPEAK WITH HIS SISTER. SHE SAID HE CAN COME TO STAY IN EXTRA ROOM AT HIS DADS HOUSE AT DISCHARGE IF NEEDED. HE SAID OK. ENCOURAGED HIM TO BE OUT OF BED MORE. SIT IN CHAIR FOR MEALS,ETC. HE SAID HE DOESN'T LIKE TO SIT IN CHAIR MUCH. FATHER CALLED ASHER AND THOUGHT WE HAD A MEETING IN PT.'S ROOM AT THIS TIME. I TOLD HIM THERE WAS NOTHING TO MEET ABOUT LONG HE WILL LET SON STAY AT HIS PLACE AT DISCHARGE. HE SAID HE WOULD. HE SAID PT.'S S.O.WAS A GREEN PARTY GIRL. IT IS HER HOUSE,PT.WAS JUST LIVING THERE. PT.WANTED TO SIGN RELEASE OF INFORMATION SO HE CAN GET COPIES OF MED RECORDS AT DISCHARGE. NURSING TOOK FORM IN ROOM AND PT.SIGNED.
--- NOTE | 2018-12-02 17:08 | NUR ---
PT REMAINED ALERT. PT RESTING IN ROOM. BLADDER SCANNED AT 1500, 192. JASON RECHECK AT 1800 AFTER FLUIDS FINISHED INFUSING, IF OVER 200 WILL NOTIFY NEPHROLOGY. MEDICAL RELEASE PAPERWORK SIGNED. JOSEPH IN PLACE AND DRAINING. FALL RISK PRECAUTIONS IN PLACE. HOURLY ROUNDING COMPLETED. WILL CONTINUE TO MONITOR.
[2018-12-02 17:09] LABS: ANA INTERPRETATION Positive (Negative); ANTI-DNA SCREEN 14 IU/mL (0-9)
--- NOTE | 2018-12-02 18:02 | NUR ---
BLADDER SCAN REPEATED, 55 MAX VOLUME FOUND
[2018-12-02 21:47] VITALS: BP 150/70
--- NOTE | 2018-12-03 02:43 | NUR ---
ASSUMED CARE AT START OF SHIFT FROM DAY SHIFT PT UP TO BATHROOM WITH STANDBY ASSIST, NO CONCERNS VOICED DENIES PAIN . ALERT TO SELF AND PLACE , FLAT AFFECT NOTED .RESTED WELL THROUGHOUT HOURLY ROUNDS, NO CHANGES IN PT ASSESSMENT.
[2018-12-03 04:50] LABS: ALBUMIN 2.1 g/dL (3.4-5.0); CALCIUM 7.4 mg/dL (8.5-10.1); MAGNESIUM 1.9 mg/dL (1.8-2.4); PHOSPHORUS* 3.9 mg/dL (2.5-4.9)
[2018-12-03 07:20] VITALS: BP 165/76
[2018-12-03 10:58] LABS: URINE BILIRUBIN NEGATIVE (Negative); URINE BLOOD 2+ (Negative); URINE CLARITY SL CLOUDY; URINE COLOR YELLOW; URINE GLUCOSE-RANDOM TRACE (Negative); URINE KETONES NEGATIVE (Negative); URINE LEUKOCYTES-REFLEX NEGATIVE (Negative); URINE NITRITE-REFLEX NEGATIVE (Negative); URINE PROTEIN 3+ (Negative); URINE UROBILINOGEN 0.2 E.U./dl (0.2-1.0)
[2018-12-03 11:10] LABS: SQUAMOUS 0-3 Few /LPF (0-3)
[2018-12-03 11:11] LABS: HYALINE CASTS 4-10 Moderate /LPF (None Seen)
[2018-12-03 11:12] LABS: COARSE GRANULAR CASTS 4-10 Moderate /LPF (None Seen)
[2018-12-03 11:13] LABS: BACTERIA-REFLEX None Seen /HPF (None Seen)
[2018-12-03 11:14] LABS: URINE RBC 0-2 Rare /HPF (0-2); URINE WBC-REFLEX 0-5 Rare /HPF (0-5)
[2018-12-03 11:15] LABS: AMORPHOUS URATES Moderate /LPF (None Seen)
[2018-12-03 16:00] VITALS: BP 141/69
--- NOTE | 2018-12-03 17:13 | NUR ---
PT REMAINED ALERT. PT WORKED WITH THERAPY, THERAPIST STATED PT ACTED WEIRD AND WAS HIDING UNDER THE COVERS. UNSURE OF WHAT WAS GOING ON. FALL RISK PRECAUTIONS IN PLACE. HOURLY ROUNDING COMPLETED. WILL CONTINUE TO MONITOR.
[2018-12-03 20:00] VITALS: BP 160/73
[2018-12-04] VITALS: BP 153/65
[2018-12-04 04:25] LABS: HEMATOCRIT 24.1 % (42.0-52.0); MCH 30.3 pg (26.0-34.0); MCHC 33.1 g/dL (28.0-37.0); MCV 91.4 fL (80.0-100.0); RBC 2.63 mil/uL (4.50-6.00); RDW-CV 14.1 % (10.5-14.5)
[2018-12-04 05:00] LABS: ALBUMIN 2.1 g/dL (3.4-5.0); CALCIUM 7.8 mg/dL (8.5-10.1); CREATININE 5.7 mg/dL (0.6-1.3); PHOSPHORUS* 3.9 mg/dL (2.5-4.9); POTASSIUM 3.8 mmol/L (3.5-5.1)
--- NOTE | 2018-12-04 06:55 | NUR ---
PATIENT HAS SLEPT WELL THROUGHOUT THE NIGHT. VSS ON RA. NO C/O PAIN. JOSEPH TO DEPENDENT DRAINAGE WITH ADEQUATE YELLOW URINE OUTPUT. IV IN RIGHT WRIST AND RIGHT HAND BOTH SALINE LOCKED. FALL PRECAUTIONS IN PLACE AND HOURLY ROUNDS MADE. WILL CONTINUE WITH PLAN OF CARE AND NURSING TO MONITOR.
[2018-12-04 07:15] VITALS: BP 172/77
[2018-12-04 15:34] VITALS: BP 146/55
--- NOTE | 2018-12-04 17:22 | NUR ---
PT REMAINED ALERT AND ORIENTED. PT RESTING IN ROOM. FALL RISK PRECAUTIONS IN PLACE. HOURLY ROUNDING COMPLETED. WILL CONTINUE TO MONITOR.
[2018-12-04 20:00] VITALS: BP 161/78
[2018-12-05 04:36] LABS: HEMOGLOBIN 8.1 gm/dL (14.0-18.0); MCH 30.7 pg (26.0-34.0); MCHC 33.8 g/dL (28.0-37.0); MPV 8.9 fl. (7.2-11.1); RBC 2.64 mil/uL (4.50-6.00); RDW-CV 14.2 % (10.5-14.5); WBC 7.7 thou/uL (4.0-11.0)
[2018-12-05 04:52] LABS: CREATININE 5.3 mg/dL (0.6-1.3); POTASSIUM 3.9 mmol/L (3.5-5.1)
--- NOTE | 2018-12-05 06:00 | NUR ---
PATIENT HAS SLEPT WELL THROUGHOUT THE NIGHT. VSS ON RA. NO C/O PAIN. MEDICATIONS GIVEN ORDERED AND CHARTED. ASSESSMENT CHARTED. JOSEPH TO DEPENDENT DRAINAGE WITH YELLOW URINE OUTPUT. IV IN RIGHT HAND-SL. IV IN RIGHT WRIST-SL. IV ABT GIVEN WITHOUT ANY ADVERSE SIDE EFFECTS NOTED. FALL PRECAUTIONS IN PLACE AND HOURLY ROUNDS MADE. WILL CONTINUE WITH PLAN OF CARE AND NURSING TO MONITOR.
[2018-12-05 07:30] VITALS: BP 148/60
--- NOTE | 2018-12-05 15:21 | NUR ---
MANAGER ARCHITECTURE SPOKE TO THE PATIENT IN AN ATTEMPT TO ASSIST THE PATIENT IN COMPLETING DPOA PAPERWORK. PATIENT INITIALLY RECEPTIVE AND IN AGREEMENT WITH COMPLETING DPOA AND NAMED HIS BROTHER MAREK HIS AGENT. HOWEVER WHEN D/C GREEN MARKETING ANALYST AND CM CAME TO NOTARIZE FORM PATIENT DECLINED STATING 'I DON'T KNOW IF I WANT TO DO THAT RIGHT NOW, AND I DONT KNOW IF I WANT MY BROTHER TO DO IT EITHER'. D/C GREEN MARKETING ANALYST ATEMPTED TO INFORM THE PATEINT OF THE IMPORTANCE OF COMPLETING THE FORM AND INFORMED THE PATIENT THAT IF HE CHANGES HIS MIND AND DECIDES TO COMPLETE DPOA FORM TO INFORM CM AND WE WILL RETURN TO NOTARIZE THE FORM. PATIENT COMFIRMS UNDERSTANDING. CM WILL REMAIN AVAILABLE TO ASSIST AND FOLLOW NEEDED.
[2018-12-05 16:00] VITALS: BP 153/72
--- NOTE | 2018-12-05 17:29 | NUR ---
NURSE STATES THAT THERE IS NO CONCERN FOR SWALLOWING. SWALLOWING EVAL, DEFERRED. PT ALREADY ON CASELOAD FOR COGNITION.
--- NOTE | 2018-12-05 18:06 | NUR ---
ASSUMED CARE OF PATIENT AT APPROX 0730. ALERT AND ORIENTED 2-3. ASSESSMENT COMPLETED AND CHARTED. VSS ON ROOM AIR. NO COMPLAINTS OF PAIN, NAUSEA OR SOA. PATIENT RESTLESS TODAY, PULLING AND PICKING AT THINGS RESULTING IN TWO IV'S BEING REMOVED. DR KING PAGED AND ASKED IF WE COULD DISCONTINUE NEED FOR IV ACCESS, HE ORDERED PO ANTIBIOTICS AND GAVE OK TO LEAVE IV OUT AT THIS TIME. PATIENT ASKING ABOUT [place] NEARBY AND IF THERE IS FENCING AROUND THE HOSPITAL, I ASKED IF HE WAS PLANNING ON LEAVING AND HE SAID "YES". I EXPLAINED THAT THE DOCTOR SAID HE COULD GO HOME TOMORROW AND ASKED IF HE WOULD STAY WITH US ONE MORE NIGHT AND HE SAID "OK". BED AND CHAIR ALARMS USED TODAY, ALONG WITH FREQUENT MONITORING. JOSEPH REMOVED THIS AM AND PATIENT HAS BEEN VOIDING WITHOUT DIFFICULTY. POST VOID RESIDUAL CHARTED. FALL PRECAUTIONS IN PLACE, CALL LIGHT WITHIN REACH, HOURLY ROUNDS COMPLETED AND NURSING WILL CONTINUE TO MONITOR.
[2018-12-05 21:06] LABS: ANA INTERPRETATION Negative (())
[2018-12-06] VITALS: BP 165/77
[2018-12-06 02:06] LABS: ANTI-DNA SCREEN 14 IU/mL (0-9)
--- NOTE | 2018-12-06 05:14 | NUR ---
PATIENT HAS SLEPT WELL THROUGHOUT THE NIGHT. VSS ON RA. NO C/O PAIN. PATIENT UP WITH SBA. MEDICATIONS GIVEN ORDERED AND CHARTED. FALL PRECAUTIONS IN PLACE AND HOURLY ROUNDS MADE. WILL CONTINUE WITH PLAN OF CARE AND NURSING TO MONITOR.
[2018-12-06 05:49] LABS: ALBUMIN 2.5 g/dL (3.4-5.0); CALCIUM 8.1 mg/dL (8.5-10.1); CREATININE 5.4 mg/dL (0.6-1.3); PHOSPHORUS* 3.8 mg/dL (2.5-4.9); POTASSIUM 3.7 mmol/L (3.5-5.1)
[2018-12-06 07:20] VITALS: BP 180/77
[2018-12-06 09:07] VITALS: BP 180/77
[2018-12-06 09:09] VITALS: BP 180/77
--- NOTE | 2018-12-06 10:33 | NUR ---
TUNNEL KILN OPERATOR SPOKE TO THE PATIENT TO DISCUSS DISCHARGE PLANNING NEEDS AND THAT HE MAY POSSIBLY D/C TODAY. PLAN IS FOR THE PATIENT TO D/C TO HIS FATHER'S HOME. D/C SHIPPING AND RECEIVING COORDINATOR ATTEMPTED TO CONTACT PATIENT'S FATHER KASANDRA, AND PATIENT'S NAINA RON, BUT NEITHER ANSWERED. D/C SHIPPING AND RECEIVING COORDINATOR LEFT A MESSAGE TO RETURN CALL ON THE FATHER'S LINE AND THE NAINA'S NUMBER DOES NOT RING AND IS A NON-WORKING NUMBER. D/C SHIPPING AND RECEIVING COORDINATOR WILL CONTINUE TO ATTEMPT TO CONTACT PATIENT'S FAMILY TO DISUCSS DISCHARGE PLANNING NEEDS. CM WILL REMAIN AVIALABLE TO ASSIST AND FOLLOW NEEDED.
[2018-12-06 15:48] VITALS: BP 152/71
--- NOTE | 2018-12-06 17:22 | NUR ---
PT REMAINED ALERT AND ORIENTED. PT RESTING IN ROOM. PT URINATING ADEQUATELY. FALL RISK PRECAUTIONS IN PLACE. HOURLY ROUNDING COMPLETED. WILL CONTINUE TO MONITOR.
[2018-12-06 19:30] VITALS: BP 150/71
[2018-12-07] VITALS (8 sets, daily range): BP systolic 149–180; BP diastolic 58–80
[2018-12-07 05:03] LABS: HEMATOCRIT 23.7 % (42.0-52.0); HEMOGLOBIN 8.2 gm/dL (14.0-18.0); MCH 31.7 pg (26.0-34.0); MCHC 34.7 g/dL (28.0-37.0); MCV 91.4 fL (80.0-100.0); MPV 9.1 fl. (7.2-11.1); RBC 2.59 mil/uL (4.50-6.00); RDW-CV 14.5 % (10.5-14.5); WBC 8.2 thou/uL (4.0-11.0)
--- NOTE | 2018-12-07 05:14 | NUR ---
PT SLEPT MOST OF SHIFT. ASSESSMENT DOCUMENTED. MEDS GIVEN PER -SEP. NO IV ACCESS THIS SHIFT. NO REPORTS OF PAIN. FALL PRECAUTIONS IN PLACE. WILL CONTINUE WITH PLAN OF CARE.
[2018-12-07 05:39] LABS: ALBUMIN 2.2 g/dL (3.4-5.0); CALCIUM 7.8 mg/dL (8.5-10.1); MAGNESIUM 1.9 mg/dL (1.8-2.4); POTASSIUM 3.9 mmol/L (3.5-5.1); TOTAL BILIRUBIN 0.4 mg/dL (<0.1-1.0)
--- NOTE | 2018-12-07 14:34 | EEG ---
[address] [address] EEG STUDY REPORT Name: DOT AGUSTIN Room: [address] IN M.R.#: [id number] Admission: 11/22/18 Attend Phys: Shawn Garcia MD Discharge: Date of : 59 Report #: [id number] THIS REPORT FOR: //name// CC: Shawn Garcia [facility] physician/PCP DATE OF SERVICE: 11/23/2018 This patient is being evaluated for altered mental status. EEG was done by placing the electrode by standard 10-20 system of electrode placement. Both referential and sequential montages were used for recording. Background activity in this patient's EEG is about 7 Hz and 30 microvolts. There is a poorly formed background activity. Photic stimulation is unremarkable. This patient became drowsy and that is associated with bilateral slowing and vertex sharp waves. Throughout the record, no active epileptiform activity was noticed. IMPRESSION: Moderately abnormal EEG because it is intermixed with theta range slowing on both sides. That is a nonspecific abnormality which can occur with dementia, encephalopathy, effect of psychotropic medications, etc. Clinical correlation is recommended. <ELECTRONICALLY SIGNED> By: Heber Hughes MD 12/07/18 1434 1059 [id number] Hughes MD /nt
[2018-12-07 15:05] LABS: ANTI-DNA SCREEN 14 IU/mL (0-9); ANTI-RNP <0.2 AI (0.0-0.9)
--- NOTE | 2018-12-07 15:22 | NUR ---
STOCKROOM ATTENDANT INFORMED THAT THE PATIENT IS READY TO D/C HOME TODAY AND WILL NEED FOLLOW-UP APPT WITH PCP. PATIENT HAS NO INSURANCE OR PCP. D/C BONDING EQUIPMENT OPERATOR ARRANGED FOLLOW-UP APPT WITH [facility], [place] FOR: BEE DECEMBER 13, 2018 @ 1020. D/C BONDING EQUIPMENT OPERATOR MADE CONTACT WITH PATIENT'S FATHER KASANDRA AND PATIENT'S NAINA DU, WHO INFORMS THAT THEY ARE WILLING TO BRING THE PATIENT TO THEIR HOME AND WILL PROVIDE TRANSPORT HOME. DC BONDING EQUIPMENT OPERATOR PROVIDED PATIENT WITH A COMMUNITY RESOURCE LIST AND INFORMED PATIENTS FAMILY OF THE NEED TO F/U WITH [facility] TO COMPLETE MEDICAID [place] WELL. CM WILL REMAIN AVIALABLE TO ASSIST AND FOLLOW NEEDED. [facility] PHONE: [phone] FAX: [phone]
[2018-12-07] MEDS ORDERED: HUMALOG100 UNIT/1 SUBQ (15:46)
[2018-12-07] MEDS ORDERED: IRON325 PO (15:47)
[2018-12-07] MEDS ORDERED: HYDRALAZINE 2525 MG PO (15:48)
[2018-12-07] MEDS ORDERED: PROSCAR 5MG TABL5 MG PO (15:49)
[2018-12-07] MEDS ORDERED: FLOMAX0.4 MG PO (15:50)
[2018-12-07] MEDS ORDERED: FOLIC ACID1 MG PO (15:51)
[2018-12-07] MEDS ORDERED: ASPIR 8181 MG PO (15:52)
[2018-12-07] MEDS ORDERED: PROTONIX40 M1 PO (15:52)
--- NOTE | 2018-12-07 16:18 | NUR ---
PT GIVEN DISCHARGE INFORMATION, CARE NOTES, PRESCRIPTIONS, GOOD RX CARD, AND PCP INFORMATION AT [facility]. NO IV PRESENT. PICTURES TAKEN. FALL RISK PRECAUTIONS IN PLACE. HOURLY ROUNDING COMPLETED. PT LEFT VIA WHEELCHAIR TO HOME.
--- NOTE | 2018-12-07 17:28 | NUR ---
PT GIVEN SCRUBS TO WEAR HOME.
--- NOTE | 2018-12-12 10:38 | D ---
[address] [address] DISCHARGE SUMMARY Name: VAMSIDOT CUEVAS Room: [address] IN M.R.#: [id number] Admission: 11/22/18 Attend Phys: Shawn Garcia MD Discharge: 12/07/18 Date of : 59 Report #: [id number] THIS REPORT FOR: //name// CC: Shawn Garcia [facility] physician/PCP Yohana Sweeney MD DATE OF SERVICE: 12/07/2018 DISCHARGE DIAGNOSES: Acute on chronic renal failure in the setting of urinary retention secondary to meatal stenosis, chronic kidney disease , nephrotic proteinuria, anemia, hypertension, diabetes, cerebrovascular accident, peripheral vascular disease, vitamin D deficiency, critical hyperkalemia, resolved, severe lactic acidosis, bradycardia, anemia of chronic disease, folate deficiency, labile hypertension, severe protein-calorie malnutrition. HOSPITAL COURSE: The patient is a 63-year-old gentleman who presented to us here because of confusion. His called the police and apparently he was having confusion. He was then admitted, was noted to be in acute renal failure on top of his history of chronic renal failure. His creatinine was 5 on admission. He was then given fluids. Workup was done. Nephrology saw the patient along with Urology. He also had hyperkalemia secondary to acute kidney injury. He was admitted first in the ICU, was getting better. His hyperkalemia did resolve. His creatinine remained stable and he is having urine output. He had multiple imaging done of which abdomen and CAT scan showed moderate basilar pulmonary infiltrate, likely pneumonia and right pleural effusion, no acute findings in the abdomen or pelvis. There was catheter within the urinary bladder, likely indwelling Viveros catheter and tiny stones or gravel within the gallbladder without signs of cholecystitis. Urology was consulted and he was unable to void when he was here. He was noted to have urinary retention secondary to meatal stenosis. This prob the cause of the patient's acute renal failure. Given the patient's confusion, Neurology was also consulted and Dr. Gamez saw the patient in consultation and thought that the patient probably has dementia and depression. He probably also was delirious secondary to his renal failure. He was found to have electrolyte abnormalities. He was placed on calcium. He had an MRI done of the head, which showed no evidence of stenosis or dissection or occlusion. He did have a repeat renal ultrasound, which showed unremarkable kidneys with no hydronephrosis. He has a Viveros catheter in place, which was discontinued a few days ago. He has been voiding. Nephrology also okay with discharging the patient home and to follow up with Dr. [facility] in 1-2 weeks after discharge with a repeat BMP in 3-5 days. He will be set up by brooke rossi follow up with Dr. [facility] and Urology followup also. Urology recommended cystoscopy,studies as outpatient if persistent urinary retention. We will defer [place] [address] DISCHARGE SUMMARY Name: DOT AGUSTIN Room: [address] IN M.R.#: [id number] Admission: 11/22/18 Attend Phys: Shawn Garcia MD Discharge: 12/07/18 Date of : 59 Report #: [id number] followup here. DISCHARGE PHYSICAL EXAMINATION: VITAL SIGNS: Temperature is 37, heart rate 66, respirations 16, blood pressure 180/77. GENERAL: The patient is alert. He is oriented x 2, not in acute respiratory distress. HEENT: Normocephalic, atraumatic. Nares patent. Clear pharynx. NECK: Supple. No lymphadenopathy. CARDIOVASCULAR: Normal rate, regular rhythm. No murmurs noted. RESPIRATORY: Clear to auscultation bilaterally. No wheeze, no crackles. GASTROINTESTINAL: Abdomen is soft, nontender, nondistended, positive bowel sounds. No organomegaly. GENITOURINARY: Deferred. MUSCULOSKELETAL: Fair strength. NEUROLOGIC: Grossly normal. PSYCHIATRIC: The patient is calm and cooperative. DISCHARGE MEDICATIONS: Amlodipine 10 mg daily. I believe that the patient's antibiotic has been finished as has finished about 13 days of Zosyn and switched to Augmentin yesterday. He does not need antibiotics at discharge. He is to finish aspirin 81 daily, atorvastatin 40 mg p.o. at bedtime, carvedilol 12.5. Carvedilol has been decreased to 12.5 mg b.i.d., cholecalciferol 2000 daily, ferrous sulfate 325 at bedtime, finasteride 5 mg daily, Folic acid 1 mg daily, isosorbide mononitrate 60 mg daily, lactobacillus daily b.i.d., pantoprazole 40 mg daily, sodium bicarbonate 1300 mg p.o. t.i.d., Flomax 0.4 mg at bedtime. The patient was also been on hydralazine 50 mg q.i.d. I spent 38 minutes taking care of this patient today. <ELECTRONICALLY SIGNED> By: Megan Clayton MD 12/12/18 1038 1524 [id number] Clayton MD /PMT
== END 2018-12-07 17:28 | disposition home or self-care (01) | DRG 871 ==
LOC: M.ERS 06:10 → M.ICU 07:31 → M.TBA-ER 07:31 → M.2W 07:31 → M.ICU 10:43 → M.2W 11-23 19:18 → M.ORTHSURG 11-29 15:58
PROVIDERS: Emergency Medicine; Family Medicine; Internal Medicine; Internal Medicine Nephrology; Personal Emergency Response Attendant; Psychiatry & Neurology Neurology; ADMIT Internal Medicine
DX: A41.9 Sepsis, unspecified organism (principal); J69.0 Pneumonitis due to inhalation of food and vomit; G93.41 Metabolic encephalopathy; N17.0 Acute kidney failure with tubular necrosis; I63.9 Cerebral infarction, unspecified; E43 Unspecified severe protein-calorie malnutrition; N18.5 Chronic kidney disease, stage 5; I13.2 Hypertensive heart and chronic kidney disease with heart failure and with stage 5 chronic kidney disease, or end stage renal disease; E11.22 Type 2 diabetes mellitus with diabetic chronic kidney disease; E11.51 Type 2 diabetes mellitus with diabetic peripheral angiopathy without gangrene; E87.5 Hyperkalemia; F03.90 Unspecified dementia, unspecified severity, without behavioral disturbance, psychotic disturbance, mood disturbance, and anxiety; E78.5 Hyperlipidemia, unspecified; N13.9 Obstructive and reflux uropathy, unspecified; I50.9 Heart failure, unspecified; R33.9 Retention of urine, unspecified; E53.8 Deficiency of other specified B group vitamins; D63.1 Anemia in chronic kidney disease; D50.9 Iron deficiency anemia, unspecified; N35.911 Unspecified urethral stricture, male, meatal; R00.1 Bradycardia, unspecified; Z89.432 Acquired absence of left foot; Z79.82 Long term (current) use of aspirin; Z79.899 Other long term (current) drug therapy; Z68.32 Body mass index [BMI] 32.0-32.9, adult

== ENCOUNTER 2019-04-01 01:05 | Inpatient (IN) | payer MEDICAID ==
[~2019-04-01] VITALS: Ht 170.2 cm; Wt 63.8 kg
[2019-04-01] VITALS (7 sets, daily range): BP systolic 117–204; BP diastolic 61–100
--- NOTE | ~2019-04-01 | PROC ---
[address] [address] PROCEDURE REPORT Name: DOT AGUSTIN Room: [address] IN M.R.#: [id number] Admission: 04/01/19 Attend Phys: Keya Rajput MD Discharge: Date of : 59 Report #: [id number] THIS REPORT FOR: //name// For GI report, please see the Provation report in Perceptive 7 content. By: [id number] Records Staff BILLIE /ALE
[~2019-04-01 01:05] MED LIST: AMLODIPINE BESY10 MG PO; ASPIR 8181 MG PO; COREG25 MG PO; FLOMAX0.4 MG PO; FOLIC ACID1 MG PO; HUMALOG100 UNIT/1 SUBQ; HYDRALAZINE 2525 MG PO; IMDUR 60 MG TAB60 M1 PO; IRON325 PO; LIPITOR 20 MG T20 M1 PO; PROSCAR 5MG TABL5 MG PO; PROTONIX40 M1 PO; SODIUM BICARB PO; ZANTAC 150MG T150 MG PO
--- NOTE | 2019-04-01 01:16 | NUR ---
DR NOVAK TO EVALUATE
--- NOTE | 2019-04-01 01:20 | NUR ---
PATIENT COMPLAINS OF N/V/D THAT BEGAN 3 DAYS AGO ONE EPISODE OF VOMITING IN LAST 24 HRS PER PATIENT +FEVERS DENIES BLOOD IN EMESIS OR STOOLS. PT ALSO COMPLAINS OF PAIN TO BOTH FEET. NO SIGNS OF DISTRESS NOTED
[2019-04-01 01:47] LABS: HEMATOCRIT 30.3 % (42.0-52.0); HEMOGLOBIN 10.4 gm/dL (14.0-18.0); MCH 30.7 pg (26.0-34.0); MCHC 34.4 g/dL (28.0-37.0); MCV 89.3 fL (80.0-100.0); MPV 8.2 fl. (7.2-11.1); NUCLEATED RBCS 0 /100WBC; PLATELET COUNT* 476 thou/uL (150-400); RBC 3.39 mil/uL (4.50-6.00); RDW-CV 14.8 % (10.5-14.5); WBC 13.3 thou/uL (4.0-11.0)
[2019-04-01 02:02] LABS: CALCIUM 7.6 mg/dL (8.5-10.1); CREATININE 7.4 mg/dL (0.6-1.3); POTASSIUM 5.2 mmol/L (3.5-5.1)
[2019-04-01 02:11] LABS: ALBUMIN 1.8 g/dL (3.4-5.0); TOTAL BILIRUBIN 0.3 mg/dL (<0.1-1.0); TOTAL PROTEIN 6.6 g/dL (6.4-8.2); TROPONIN-I LEVEL 0.37 ng/mL (<0.06)
--- NOTE | 2019-04-01 02:31 | NUR ---
PATIENT RETURNED FROM RADIOLOGY
[2019-04-01 02:57] LABS: ABSOLUTE EOSINOPHILS 0.4 thou/uL (0.0-0.7); ABSOLUTE LYMPHOCYTES 0.7 thou/uL (0.8-5.3); ABSOLUTE MONOCYTES 0.3 thou/uL (0.0-1.2); PLATELET ESTIMATE INCREASED
--- NOTE | 2019-04-01 07:01 | NUR ---
REPORT RECIEVED FROM ER. PT ORIENTED TO ROOM, CALL LIGHT SHOWN, FALL AGREEMENT GONE OVER, PT STATED UNDERSTANDING. DR NOTIFIED OF RETENTION AND ELEVATED BP. ORDERS RECIEVED. IV PATENT, FLUIDS INFUSING. WILL CONTINUE WITH PLAN OF CARE.
--- NOTE | 2019-04-01 07:50 | NUR ---
JOSEPH WITH LIDOCANE UROJET AND COUDE TIP CATHETER PLACED WITH NO DIFFICULTY.
[2019-04-01 08:06] LABS: URINE BILIRUBIN NEGATIVE (Negative); URINE BLOOD 1+ (Negative); URINE CLARITY SL CLOUDY; URINE COLOR YELLOW; URINE GLUCOSE-RANDOM 1+ (Negative); URINE KETONES NEGATIVE (Negative); URINE LEUKOCYTES-REFLEX NEGATIVE (Negative); URINE NITRITE-REFLEX NEGATIVE (Negative); URINE PROTEIN 3+ (Negative); URINE UROBILINOGEN 0.2 E.U./dl (0.2-1.0)
[2019-04-01 08:18] LABS: SQUAMOUS 0-3 Few /LPF (0-3)
[2019-04-01 08:20] LABS: AMORPHOUS URATES Many /LPF (None Seen); CASTS None Seen /LPF (None Seen); CRYSTALS None Seen /LPF (None Seen); MUCUS None Seen strn/LPF (None Seen); URINE RBC 0-2 Rare /HPF (0-2); URINE WBC-REFLEX 0-5 Rare /HPF (0-5)
[2019-04-01 10:00] LABS: AMP/METHAMP Negative (Negative); BARBITURATES Negative (Negative); BENZODIAZEPINES Negative (Negative); COCAINE Negative (Negative); METHADONE Negative (Negative); OPIATES Negative (Negative); PCP Negative (Negative); THC Negative (Negative)
[2019-04-01 15:19] LABS: CALCIUM 7.4 mg/dL (8.5-10.1); CREATININE 7.1 mg/dL (0.6-1.3); POTASSIUM 4.7 mmol/L (3.5-5.1)
[2019-04-02 00:41] VITALS: BP 145/71
[2019-04-02 04:00] VITALS: BP 161/74
[2019-04-02 04:33] LABS: ABSOLUTE BASOPHILS 0.2 thou/uL (0.0-0.2); ABSOLUTE EOSINOPHILS 0.4 thou/uL (0.0-0.7); ABSOLUTE LYMPHOCYTES 0.6 thou/uL (0.8-5.3); ABSOLUTE MONOCYTES 0.5 thou/uL (0.0-1.2); ABSOLUTE NEUTROPHILS 6.2 thou/uL (1.6-8.1); BASOPHILS 1.9 %; EOSINOPHILS 5.1 %; HEMATOCRIT 21.6 % (42.0-52.0); LYMPHOCYTES 7.8 %; MCH 30.7 pg (26.0-34.0); MCHC 34.1 g/dL (28.0-37.0); MCV 89.8 fL (80.0-100.0); MONOCYTES 6.5 %; MPV 7.4 fl. (7.2-11.1); NUCLEATED RBCS 0 /100WBC; POLYS 78.7 %; RBC 2.41 mil/uL (4.50-6.00); RDW-CV 14.5 % (10.5-14.5); WBC 7.9 thou/uL (4.0-11.0)
[2019-04-02 04:50] LABS: ALBUMIN 1.2 g/dL (3.4-5.0); CALCIUM 6.2 mg/dL (8.5-10.1); TOTAL BILIRUBIN 0.1 mg/dL (<0.1-1.0); TOTAL PROTEIN 4.6 g/dL (6.4-8.2)
[2019-04-02 04:55] LABS: HEMOGLOBIN 7.4 gm/dL (14.0-18.0); PLATELET COUNT* 316 thou/uL (150-400)
--- NOTE | 2019-04-02 05:03 | NUR ---
PT SLEPT ON AND OFF THIS SHIFT. ASSESSMENT DOCUMENTED. MEDS GIVEN PER E-SEP. IV PATENT, FLUIDS INFUSING. NO REPORTS OF PAIN. PT REPOSITIONED SELF IN BED THORUGH NIGHT. JOSEPH IN PLACE DRAINING DEPENDANTLY. FALL PRECAUTIONS IN PLACE. WILL CONTINUE WITH PLAN OF CARE.
[2019-04-02 08:00] VITALS: BP 180/85
--- NOTE | 2019-04-02 10:40 | EKG ---
[place] [address] ELECTROCARDIOGRAM REPORT Name: DOT AGUSTIN Room: [address] ADM IN M.R.#: [id number] Admission: 04/01/19 Attend Phys: Keya Rajput MD Discharge: Date of : 59 Report #: [id number] THIS REPORT FOR: //name// [place] ED Test Date: 2019-04-01 Test Time: 01:18:41 Pat Name: DOT AGUSTIN Department: Room: [facility] Gender: M Business Manager College Or University: [place] : 1955 Requested By: Patrick Meza Order Number: [id number] MD: Mart Hawkins Measurements Intervals [place] Rate: 77 P: 74 NH: 142 QRS: 61 QRSD: 80 T: 113 QT: 411 QTc: 466 Interpretive Statements Sinus rhythm Left ventricular hypertrophy, by voltage Nonspecific T-wave inversion in the lateral leads Compared to ECG 11/23/2018 13:29:55 significant changes not appreciated Electronically Signed On 04-02-2019 10:40:37 CDT by Mart Hawkins [email or web address] <ELECTRONICALLY SIGNED> By: Mart Hawkins MD, FACC 04/02/19 1040 0118 0118 Mart Hawkins MD, [facility] /EPI
[2019-04-02 11:04] LABS: % SATURATION 82 % (20-39); IRON 69 ug/dL (50-175)
[2019-04-02 12:31] VITALS: BP 139/71
[2019-04-02 16:12] VITALS: BP 110/58
--- NOTE | 2019-04-02 19:25 | NUR ---
PT VVS, NSR ON TELE, PT HAS DEMENTIA, BASELINE CONFUSION. JOSEPH ORDERED BY NEPHROLOGY. HIGH FALL RISK, POSSESSIONS AND CALL LIGHT WITHIN REACH- HOURLY ROUNDING PERFORMED
[2019-04-02 20:15] VITALS: BP 127/64
[2019-04-03] VITALS (7 sets, daily range): BP systolic 126–159; BP diastolic 56–77
--- NOTE | 2019-04-03 04:54 | NUR ---
PT SLEPT ON AND OFF THIS SHIFT. ASSESSMENT DOCUMENTED. MEDS GIVEN PER E-MAR. IV PATENT, FLUIDS INFUSING. NO REPORTS OF PAIN. JOSEPH DRAINING DEPENDENTLY. PT CONFUSED ABOUT TIME OF DAY THIS SHIFT. WILL COTNINUE WITH PLAN OF CARE.
[2019-04-03 05:34] LABS: ALBUMIN 1.3 g/dL (3.4-5.0); CREATININE 7.2 mg/dL (0.6-1.3); POTASSIUM 4.7 mmol/L (3.5-5.1); TOTAL BILIRUBIN 0.2 mg/dL (<0.1-1.0); TOTAL PROTEIN 5.1 g/dL (6.4-8.2)
[2019-04-03 05:37] LABS: CALCIUM 5.8 mg/dL (8.5-10.1)
--- NOTE | 2019-04-03 12:29 | NUR ---
Pt is A&O, some forgetfulness. CM spoke with Pt's sig other of 15 years, Shara via phone. Goal is for Pt to return home with her. Pt uses a cane for mobility, but per SO, Pt is "lazy" and doesn't want to get up and move. SO assists Pt as needed. No hx of HH or SNF. Per SO, now that Pt has medicaid, she plans to call to set up and appt with Pt's internal affairs investigator, Dr Yohana Sweeney out of [facility]. Anticipate that Pt will be ready to dc soon. Following.
[2019-04-03 15:10] LABS: ABSOLUTE BASOPHILS 0.1 thou/uL (0.0-0.2); ABSOLUTE EOSINOPHILS 0.4 thou/uL (0.0-0.7); ABSOLUTE LYMPHOCYTES 0.9 thou/uL (0.8-5.3); ABSOLUTE MONOCYTES 0.6 thou/uL (0.0-1.2); ABSOLUTE NEUTROPHILS 5.7 thou/uL (1.6-8.1); BASOPHILS 1.3 %; EOSINOPHILS 5.5 %; MCH 30.3 pg (26.0-34.0); MCV 88.9 fL (80.0-100.0); MONOCYTES 7.6 %; NUCLEATED RBCS 0 /100WBC; PLATELET COUNT* 315 thou/uL (150-400); POLYS 73.6 %; RBC 2.17 mil/uL (4.50-6.00); RDW-CV 14.6 % (10.5-14.5); WBC 7.7 thou/uL (4.0-11.0)
[2019-04-03 15:15] LABS: ALBUMIN 1.3 g/dL (3.4-5.0); CREATININE 7.4 mg/dL (0.6-1.3); PHOSPHORUS* 6.5 mg/dL (2.5-4.9); POTASSIUM 4.6 mmol/L (3.5-5.1)
[2019-04-03 15:18] LABS: CALCIUM 5.9 mg/dL (8.5-10.1)
[2019-04-03 15:18] LABS: HEMATOCRIT 19.3 % (42.0-52.0); HEMOGLOBIN 6.6 gm/dL (14.0-18.0)
[2019-04-03 15:30] LABS: CREATININE 7.1 mg/dL (0.6-1.3); POTASSIUM 4.2 mmol/L (3.5-5.1)
[2019-04-03 15:37] LABS: CALCIUM 5.4 mg/dL (8.5-10.1)
--- NOTE | 2019-04-03 19:40 | NUR ---
PT TRANSFERRED FROM TELE TO ROOM 304, AO, PLEASANT. BLOOD INFUSING RFA WITHOUT DIFFICULTY. JOSEPH DRAINING YELLOW URINE. PT DENIES PAIN OR PROBLEMS. CONT PULSE OX ON AND OPERATING WITHOUT ALARMING. VS OBTAINED. ACCUCHECK. PT INSTRUCTED IN NPO STATUS AFTER MIDNIGHT, VERBALIZES UNDERSTANDING. ON CONTACT ISOLATION FOR MRSA HISTORY. MED SURG STATUS. WILL CONTINUE TO MONITOR AND PROVIDE CARES NEEDED. CALL LITE IN EASY REACH, BED ALARM ON FOR SAFETY.
--- NOTE | 2019-04-03 19:41 | NUR ---
PT VSS, NSR ON TELE, PT A&OX4 AT 0800, THEN CONFUSION EFFECTED ORIENTATION LATER IN THE DAY. PT HAS DEMENTIA. KIDNEY DISEASE. HIGH FALL RISK, POSSESSIONS AND CALL LIGHT WITHIN REACH. PT AMBULATES WITH CANE. HOURLY ROUNDING PERFORMED. PT HAD CRITICAL VALUE OF 6.6 HGB, PRBC INFUSING WITH NO REACTION. PT TRANSFERRED TO [facility] AT SHIFT CHANGE. REPORT GIVEN, PT SENT BY BED.
--- NOTE | 2019-04-03 19:56 | NUR ---
THIS RN HAS REVIEWED AND AGREES WITH THE ASSESSMENT AND CHARTING OF CANDIE ARRIAGA.
[2019-04-03 22:57] LABS: HEMATOCRIT 25.7 % (42.0-52.0)
[2019-04-03 22:59] LABS: HEMOGLOBIN 9.1 gm/dL (14.0-18.0)
[2019-04-04] VITALS (9 sets, daily range): BP systolic 145–161; BP diastolic 70–81
[2019-04-04 04:37] LABS: ABSOLUTE BASOPHILS 0.1 thou/uL (0.0-0.2); ABSOLUTE EOSINOPHILS 0.5 thou/uL (0.0-0.7); ABSOLUTE LYMPHOCYTES 0.9 thou/uL (0.8-5.3); ABSOLUTE MONOCYTES 0.6 thou/uL (0.0-1.2); ABSOLUTE NEUTROPHILS 6.3 thou/uL (1.6-8.1); HEMATOCRIT 26.7 % (42.0-52.0); HEMOGLOBIN 9.2 gm/dL (14.0-18.0); LYMPHOCYTES 10.9 %; MCH 30.4 pg (26.0-34.0); MCHC 34.6 g/dL (28.0-37.0); MONOCYTES 6.9 %; MPV 8.1 fl. (7.2-11.1); NUCLEATED RBCS 0 /100WBC; PLATELET COUNT* 286 thou/uL (150-400); POLYS 75.2 %; RBC 3.03 mil/uL (4.50-6.00); RDW-CV 14.2 % (10.5-14.5); WBC 8.4 thou/uL (4.0-11.0)
[2019-04-04 04:47] LABS: CREATININE 6.7 mg/dL (0.6-1.3); POTASSIUM 4.5 mmol/L (3.5-5.1)
[2019-04-04 05:04] LABS: CALCIUM 5.9 mg/dL (8.5-10.1)
--- NOTE | 2019-04-04 05:38 | NUR ---
PT RECEIVED BLOOD TRANSFUSION AND HGB UP TO 9.1 AT REDRAW. PT HAS BEEN NPO SINCE MIDNIGHT, SIP WITH SALES TRAINER MEDS. JOSEPH DRAINING YELLOW URINE 1000 ML. RWRIST SL AFTER IV CALCIUM AND ABX GIVEN. ACCUCHECK 138, NO INSULIN ORDERED. SNACK GIVEN AND TOLERATED WITHOUT DIFFICULTY. REMAINS ON CONTACT ISOLATION FOR MRSA NARES. PT MOVES ABOUT IN BED INDEPENDENTLY AND CHANGES POSITIONS FREQUENTLY OVERNIGHT. AM LAB DRAWN, CRITICAL CALCIUM RESULT-DR NOTIFIED THROUGH JAMARCUS CLARKE. EGD SCHEDULED FOR LATE MORNING. PT AOX3, FORGETFUL, CALM COOPERATIVE. ABLE TO USE CALL LITE. BED ALARM ON FOR SAFETY.
--- NOTE | 2019-04-04 14:03 | CON ---
[address] [address] CONSULTATION Name: DOT AGUSTIN Room: [address] IN M.R.#: [id number] Admission: 04/01/19 Attend Phys: Keya Rajput MD Discharge: Date of : 59 Report #: [id number] THIS REPORT FOR: //name// CC: [facility] physician/PCP Keya Rajput DICTATED BY: Monica Calloway [facility] DATE OF SERVICE: 04/04/2019 The patient does not have a PCP. Please note at the time of this dictation, the patient was seen and physically examined by myself. REASON FOR CONSULTATION: Nausea and vomiting. HISTORY OF PRESENT ILLNESS: This is a 64-year-old male who presented to the Emergency Room with just not feeling well. He states for the past week, he has had nausea and vomiting, but denies any bright red blood or coffee-ground emesis. He is also complaining of some right upper quadrant pain, but does not worsen or improve with eating. He states his bowels have been moving regularly on a daily basis and he denies taking any NSAID use. He states that he did have a colonoscopy several years ago at [facility] and all was normal. ALLERGIES: No known drug allergies. MEDICATIONS FROM HOME: Carvedilol, amiodarone, Lipitor, amlodipine, Zantac, iron, Proscar, Flomax, and aspirin. PAST MEDICAL HISTORY: History of cerebrovascular accident, peripheral arterial disease, hypertension, CHF, and diabetes. PAST SURGICAL HISTORY: Negative. FAMILY HISTORY: Noncontributory. SOCIAL HISTORY: Denies any alcohol, tobacco or illegal drug use. REVIEW OF SYSTEMS: Twelve-point review of systems is essentially negative except what is mentioned in the HPI. PHYSICAL EXAMINATION: VITAL SIGNS: Temperature 36.9, pulse 65, respirations 18, blood pressure 145/70. HEART: [place] [address] CONSULTATION Name: DOT AGUSTIN Room: [address] IN [facility]#: [id number] Admission: 04/01/19 Attend Phys: Keya Rajput MD Discharge: Date of : 59 Report #: [id number] LUNGS: Clear. ABDOMEN: Soft, positive bowel sounds in all 4 quadrants with right upper quadrant tenderness noted to palpation. LABORATORY DATA: Hemoglobin on admission was 6.6. He got a unit. He is up to 9.2. White count 8.4, platelets 286. GFR is 9, BUN is 67, creatinine is 6.2. CT of the abdomen and pelvis shows cholelithiasis, otherwise negative. IMPRESSION: 1. Nausea and vomiting. 2. Anemia. 3. Abdominal pain. 4. Decreased appetite. 5. Cholelithiasis. 6. Chronic kidney disease. 7. Dementia. PLAN: 1. EGD today. 2. May consider further workup regarding his gallbladder if above is negative. 3. Further recommendations to be made once the procedure has been performed. Thank you for allowing us to participate in this patient's care. Please do not hesitate to call with any questions in regard to this consult. <ELECTRONICALLY SIGNED> By: Patrice Briseno MD 04/04/19 1403 1159 [id number] Briseno MD /nt
--- NOTE | 2019-04-04 15:07 | NUR ---
ASSESSMENT COMPLETE. PT IS ALERT AND ORIENTED TO SELF. PT CONFUSED AND FORGETFUL. EGD COMPLETED, SEE PROCEDURE NOTED. PT TOLERATED LUNCH AFTER EGD, DENIES N/V. PT IS ON ROOM AIR, VSS. PT IS FALL RISK, BED ALARM IN PLACE. PER CATARINA PT CAN DC HOME IF NEPHROLOGY SIGNS OFF, WAITING FOR THEM TO ROUND. ISOLATION IN PLACE. JOSEPH IN PLACE WITH ADEQAUTE OUTPUT. ACCU CHECK ACHS. PT TURNS SELF IN BED. SEE ASSESSMENT AND VITALS FOR OTHER DETAILS. CALL LIGHT WITHIN REACH. WILL CONTINUE PLAN OF CARE
[2019-04-04] MEDS ORDERED: PROTONIX40 M1 PO (17:01)
[2019-04-04] MEDS ORDERED: ERGOCALCIF50000 UNIT PO (17:05)
[2019-04-04] MEDS ORDERED: CALCIUM 500 +1 EAC5 PO (17:09)
--- NOTE | 2019-04-05 05:16 | NUR ---
PT SLEPT WELL OVERNIGHT, CONFUSED AT TIMES WANTING TO GET OOB AND PUT ON CLOTHES TO GO HOME, REORIENTED EASILY AND COOPERATIVE. JOSEPH DRAINING YELLOW URINE. UP WITH ASSIST TO BSC THIS MORNING AND HAD LARGE SOFT FORMED BM. RFA SL. AM LAB DRAWN. REMAINS ON CONTACT ISOLATION FOR MRSA. CALL LITE IN EASY REACH, BED ALARM ON FOR SAFETY. ANTICIPATING DC HOME TODAY.
[2019-04-05 05:46] LABS: ALBUMIN 1.3 g/dL (3.4-5.0); CALCIUM 6.2 mg/dL (8.5-10.1); CREATININE 6.8 mg/dL (0.6-1.3); MAGNESIUM 1.6 mg/dL (1.8-2.4); PHOSPHORUS* 6.3 mg/dL (2.5-4.9); POTASSIUM 5.7 mmol/L (3.5-5.1)
[2019-04-05 08:20] VITALS: BP 139/89
[2019-04-05] MEDS ORDERED: MINOCIN50 MG PO (11:49)
[2019-04-05] MEDS ORDERED: FOLIC ACID1 MG PO (11:52)
[2019-04-05 16:05] VITALS: BP 161/80
--- NOTE | 2019-04-05 16:07 | NUR ---
Pt to dc home with significant other today. Pt agreeable and agreeable to HH services to follow. SW called pt sig. other and left a message about dc planning. Pt nurse spoke with pt sig. other as well. Pt does not have a PCP yet but Dr Garcia agreed to follow for a short while and also suggested furnace filler possible to follow; Dr Sweeney. ANIL arranged HH services through [facility] services ph [phone] fax [phone]
[2019-04-05 16:35] VITALS: BP 161/80
--- NOTE | 2019-04-05 17:12 | NUR ---
PATIENT DISCHARGED TO HOME IN W/C WITH FAMILY FRIEND. NO SIGNS OF DISTRESS. ALL SAFETY MEASURES MAINTAINED. PATIENT DENIES PAIN AND FURTHER NEEDS AT THIS TIME. DISCHARGE PAPERWORK AND PRESCRIPTIONS SENT WITH PATIENT. IV AND JOSEPH REMOVED PRIOR TO DISCHARGE.
--- NOTE | 2019-04-11 10:19 | CON ---
[address] [address] CONSULTATION Name: DOT AGUSTIN Room: [address] IN M.R.#: [id number] Admission: 04/01/19 Attend Phys: Keya Rajput MD Discharge: 04/05/19 Date of : 59 Report #: [id number] THIS REPORT FOR: //name// CC: FAM physician/PCP Keya Rajput DATE OF SERVICE: 04/01/2019 REQUESTING PHYSICIAN: Shawn Garcia MD REASON FOR CONSULTATION: Evaluation for possible dialysis and acute kidney injury. HISTORY OF PRESENT ILLNESS: The patient is a 64-year-old gentleman with medical history significant for chronic kidney disease stage 5, several episodes of acute kidney injury recently has a history of urinary obstruction, was seen by us in the past and in the past his creatinine has improved somewhat after the Viveros placement. He was seen by Dr. Zelaya and he does have a history of meatal stenosis. His creatinine in the past was 6 and improved down to 4 and it seems like 4 is around his baseline. He is admitted to the hospital with complaints of nausea, not feeling well. Viveros was placed. He is making good urine. IV fluid started. He feels much better now. He states that he feels fine, has no complaints. PAST MEDICAL HISTORY: His medical history significant for: 1. Dementia. 2. Chronic kidney disease stage 5. 3. Deconditioning. 4. Hypercholesterolemia. 5. Also has a history of hypertension. 6. Diabetes. 7. Peripheral artery disease. SOCIAL HISTORY: No tobacco abuse. No alcohol abuse. FAMILY HISTORY: Not pertinent. REVIEW OF SYSTEMS: Unreliable. He is disoriented. He thinks that it is 1977 now and he thought that he was 74 years old. He is only 64. PHYSICAL EXAMINATION: GENERAL: He is awake, alert, no acute distress. VITAL SIGNS: His blood pressure now is 127/66, it was as high as 204/100, heart [facility] [address] [place] [address] CONSULTATION Name: DOT AGUSTIN Room: [address]#: [id number] Admission: 04/01/19 Attend Phys: Keya Rajput MD Discharge: 04/05/19 Date of : 59 Report #: [id number] rate 80, afebrile. HEENT: Pupils are round. NECK: Supple. LUNGS: Clear, air movement decreased. CARDIOVASCULAR: Regular rate. No pericardial rub appreciated. ABDOMEN: Soft. LOWER EXTREMITIES: No edema. LABORATORY DATA: Hemoglobin 10.4, serum sodium 136, potassium 5.2, chloride 108, carbon dioxide 15, BUN 67, creatinine 7.4. ASSESSMENT: 1. Acute on chronic kidney disease. The patient is probably close to dialysis; however, due to his advanced dementia, I do not think he will be a good candidate for dialysis. The patient has been followed by Dr. Yohana Sweeney, his automation controls specialist and I do not have any records from Dr. Sweeney, I am not sure what her ideas on initiation of dialysis on this patient. 2. Hypertension. 3. Diabetes. 4. Deconditioning. 5. Dementia. PLAN: 1. Keep Viveros. 2. Continue gentle hydration. 3. Check his labs and we will make decision whether or not to initiate dialysis. I discussed with the patient's nurse. <ELECTRONICALLY SIGNED> By: aRfi Stanton MD 04/11/19 1019 1522 [id number] Stanton MD /[facility]
== END 2019-04-05 17:33 | disposition home health service (06) | DRG 682 ==
LOC: M.ERS 01:05 → M.TBA-ER 02:53 → M.2W 02:53 → M.3W 04-03 20:28
PROVIDERS: Family Medicine; Internal Medicine; Internal Medicine Nephrology; ADMIT Internal Medicine
PROC: 0DJ08ZZ Inspection of Upper Intestinal Tract, Via Natural or Artificial Opening Endoscopic (ICD-10-PCS; principal; 2019-04-04)
DX: N17.9 Acute kidney failure, unspecified (principal); J18.9 Pneumonia, unspecified organism; I13.0 Hypertensive heart and chronic kidney disease with heart failure and stage 1 through stage 4 chronic kidney disease, or unspecified chronic kidney disease; N18.5 Chronic kidney disease, stage 5; F03.90 Unspecified dementia, unspecified severity, without behavioral disturbance, psychotic disturbance, mood disturbance, and anxiety; E78.00 Pure hypercholesterolemia, unspecified; E11.22 Type 2 diabetes mellitus with diabetic chronic kidney disease; E11.51 Type 2 diabetes mellitus with diabetic peripheral angiopathy without gangrene; K80.20 Calculus of gallbladder without cholecystitis without obstruction; E55.9 Vitamin D deficiency, unspecified; E83.42 Hypomagnesemia; D63.1 Anemia in chronic kidney disease; E87.5 Hyperkalemia; K21.0 Gastro-esophageal reflux disease with esophagitis; K44.9 Diaphragmatic hernia without obstruction or gangrene; I50.9 Heart failure, unspecified; E86.0 Dehydration; Z86.73 Personal history of transient ischemic attack (TIA), and cerebral infarction without residual deficits; Z79.82 Long term (current) use of aspirin; Z79.899 Other long term (current) drug therapy

== ENCOUNTER 2019-05-08 20:54 | Inpatient (IN) | payer MEDICAID ==
[~2019-05-08] VITALS: Ht 170.2 cm; Wt 74.4 kg
--- NOTE | ~2019-05-08 | CON ---
[address] [address] CONSULTATION Name: DTO AGUSTIN Room: [address] IN M.R.#: [id number] Admission: 05/08/19 Attend Phys: Keya Rajput MD Discharge: Date of : 59 Report #: [id number] THIS REPORT FOR: //name// CC: FAM physician/PCP Keya Rajput DATE OF SERVICE: 05/09/2019 REQUESTING PHYSICIAN: Donovan Johnson MD REASON FOR CONSULTATION: Acute kidney injury on top of chronic kidney disease. HISTORY OF PRESENT ILLNESS: The patient is a 64-year-old white male with medical history significant for progressive renal disease, GFR on average 7. He has been followed by Dr. Yohana Sweeney and actually saw her last week in her office, not sure dialysis. According to the , management with dialysis was discussed with the patient, although his GFR being under 10 now for a long time. The patient also has significant dementia. He has peripheral artery disease and diabetes. The patient certainly is not a good candidate for chronic hemodialysis. He was admitted to the hospital on 05/08 with a foot infection. He has gangrene of his fourth and fifth toes of the right foot. On the left, he has no toes; all toes were surgically removed before. The patient is DNR. PAST MEDICAL HISTORY: As I mentioned earlier. SOCIAL HISTORY: Lives with his . FAMILY HISTORY: Negative for renal disease. MEDICATIONS: Prior to admission reviewed. REVIEW OF SYSTEMS: The patient does not have any complaints. He really has no clue what is going on and why he is here, and he answers yes to almost all my questions. PHYSICAL EXAMINATION: GENERAL: He is awake but disoriented; no acute distress. VITAL SIGNS: Blood pressure 166/82, heart rate 85, respiratory rate is 12, afebrile. HEENT: Pupils are round. NECK: Supple. LUNGS: Decreased air movements. CARDIOVASCULAR: Regular rate. ABDOMEN: Soft. EXTREMITIES: His right fourth and fifth toes are gangrenous. All his toes were [place] [address] CONSULTATION Name: DOT AGUSTIN Room: [address] IN [facility]#: [id number] Admission: 05/08/19 Attend Phys: Keya Rajput MD Discharge: Date of : 59 Report #: [id number] LABORATORY REPORT: White count 32,000, hemoglobin 8.4, serum sodium 135, potassium 3.8, chloride 104, carbon dioxide 14, BUN 75, creatinine is 7.5. His blood cultures were drawn and negative, but Dr. Johnson told me that the preliminary report was positive for Gram-positive cocci. ASSESSMENT: 1. Progressive renal disease, reaching end stage. The patient has significant dementia and very poor quality of life; discussed this with the patient's . She is going to talk to the patient's brother and they are going to try to figure out whether or not they want to do dialysis or they are up to palliative care. 2. Diabetes mellitus type 2. 3. History of hypertension. 4. Peripheral artery disease. 5. Gangrene of the fourth and fifth toes. PLAN: As I discussed earlier, we are going to wait on the patient's family decision regarding dialysis, but I personally would not favor chronic dialysis given his poor quality of life and advanced dementia; discussed that with the patient's , with Dr. Johnson, and with the patient's nurse. By: 1111 [id number] Stanton MD /nt
[~2019-05-08 20:54] MED LIST changes: +CALCIUM 500 +1 EAC5 PO; +ERGOCALCIF50000 UNIT PO; +MINOCIN50 MG PO
[2019-05-08 20:56] VITALS: BP 156/77
[2019-05-08 21:16] LABS: HEMOGLOBIN 8.4 gm/dL (14.0-18.0); MCH 30.2 pg (26.0-34.0); MCHC 33.4 g/dL (28.0-37.0); MCV 90.3 fL (80.0-100.0); NUCLEATED RBCS 0 /100WBC; PLATELET COUNT* 333 thou/uL (150-400); RBC 2.77 mil/uL (4.50-6.00); RDW-CV 13.3 % (10.5-14.5); WBC 32.2 thou/uL (4.0-11.0)
[2019-05-08 21:21] LABS: CALCIUM 6.7 mg/dL (8.5-10.1); POTASSIUM 3.9 mmol/L (3.5-5.1)
[2019-05-08 21:22] LABS: INR 1.2; PROTIME 12.7 Seconds (9.20-11.50)
[2019-05-08 21:26] LABS: ALBUMIN 1.1 g/dL (3.4-5.0); TOTAL BILIRUBIN 0.6 mg/dL (<0.1-1.0); TOTAL PROTEIN 5.6 g/dL (6.4-8.2)
[2019-05-08 21:40] LABS: ABSOLUTE LYMPHOCYTES 0.6 thou/uL (0.8-5.3); ABSOLUTE MONOCYTES 1.3 thou/uL (0.0-1.2); ABSOLUTE NEUTROPHILS 30.3 thou/uL (1.6-8.1); PLATELET ESTIMATE ADEQUATE
[2019-05-08 22:18] LABS: ESR (SEDRATE) 150 mm/hr (0-20)
[2019-05-09 00:26] VITALS: BP 140/70
[2019-05-09 01:00] VITALS: BP 169/86
[2019-05-09 04:30] VITALS: BP 152/74
--- NOTE | 2019-05-09 05:48 | NUR ---
PT RECIEVED FROM ED IN ROON 225. ALERT AND ORIENTED X4 BUT FORGETFUL. DENIES PAIN. PICTURES TAKEN OF THE WOUND AND PLACED IN CHART. SAT MAINTAINED IN RA. PT UNABLE TO URINATE, BLADDER SCANNED REVEALED 769 ML. INFORMED PHYSICIAN, ORDERS RECIEVED FOR COUDE CATHETER. CATHETER IN PLACE, DRAINING CLOUDED URINE. HOURLY ROUNDING DONE FOR PT SAFETY.
[2019-05-09 08:00] VITALS: BP 166/82
[2019-05-09 08:10] LABS: CALCIUM 6.6 mg/dL (8.5-10.1); CREATININE 7.5 mg/dL (0.6-1.3); POTASSIUM 3.8 mmol/L (3.5-5.1)
[2019-05-09 11:21] LABS: ABSOLUTE LYMPHOCYTES 0.4 thou/uL (0.8-5.3); ABSOLUTE MONOCYTES 1.7 thou/uL (0.0-1.2); ABSOLUTE NEUTROPHILS 29.5 thou/uL (1.6-8.1); BASOPHILS 0.1 %; HEMATOCRIT 23.4 % (42.0-52.0); HEMOGLOBIN 7.9 gm/dL (14.0-18.0); LYMPHOCYTES 1.1 %; MCH 30.7 pg (26.0-34.0); MCHC 33.8 g/dL (28.0-37.0); MCV 90.8 fL (80.0-100.0); MONOCYTES 5.4 %; MPV 7.8 fl. (7.2-11.1); NUCLEATED RBCS 0 /100WBC; PLATELET COUNT* 350 thou/uL (150-400); POLYS 93.4 %; RBC 2.58 mil/uL (4.50-6.00); RDW-CV 13.5 % (10.5-14.5); WBC 31.6 thou/uL (4.0-11.0)
[2019-05-09 11:31] LABS: CALCIUM 6.8 mg/dL (8.5-10.1); CREATININE 7.6 mg/dL (0.6-1.3); POTASSIUM 3.8 mmol/L (3.5-5.1)
[2019-05-09 11:44] LABS: ALBUMIN 0.9 g/dL (3.4-5.0); MAGNESIUM 1.6 mg/dL (1.8-2.4); PHOSPHORUS* 7.1 mg/dL (2.5-4.9); TOTAL BILIRUBIN 0.3 mg/dL (<0.1-1.0); TOTAL PROTEIN 5.3 g/dL (6.4-8.2)
[2019-05-09 12:00] VITALS: BP 109/71
--- NOTE | 2019-05-09 12:49 | NUR ---
WOUND CARE NOTE: PATIENT PRESENTS WITH A WET GANGRENOUS RIGHT 5TH TOE WITH DISCOLORATION AT THE 4TH TOE AND IN THE FOREFOOT NEAR THE 5TH AND 4TH TOES ON THE PLANTAR SURFACE. PATIENT WAS ALREADY SEEN BY PODIATRY. 5TH TOE IS BLACK, WITH PARTIAL THICKNESS TISSUE BREAKDOWN. SMALL AMOUNTS OF SEROSANGUINEOUS DRAINAGE. PAINTED WITH BETADINE. WRAPPED WITH KERLIX SINCE AREA IS DRAINING. RECOMMEND DAILY DRESSING CHANGES ENCOURAGE GOOD NUTRTION/HYDRATION TIGHT BLOOD GLUCOSE CONTROL NWB OF RIGHT FOOT
--- NOTE | 2019-05-09 13:52 | NUR ---
Nutrition: Consult received for wound. Pt needing toe amputation. Wt: 144#. Regular diet ordered. Advanced dementia, new ESRD, DM, CHF. BUN 78, cr 7.6, BG 162, alb 0.9, prealb 8.8. I spoke with DPOA today. Decision is being made on comfort care vs HD. Sounds like family is leaning toward HD. One family member stated she feels like pt is more coherent and cognizant when "his blood is cleaned out from infection." RD discussed adding protein d/t his severely depleted protein stores. RD will order Beneprotein for added nutrition. Awaiting final decision on HD or not. RD available to educate on renal diet via consult.
--- NOTE | 2019-05-09 14:47 | NUR ---
ASSUMED PT CARE AT 0800, AOX2, CONFUSED, UP WITH ASSIST, O2 SAT 90'S RA. TRACING SR ON TELE. PT DENIES PAIN. PT R TOE WOUND NOTED. ID, PODIATRY, WOUND NURSE CONSULTED. PT HAS JOSEPH CATH DRAINING WELL. BUN AND CREATININE ELEVATED, PT HAS NEPHROLOGY CONSULT.PT HAD CT ABDOMEN, US ARTERIAL. PT FOR MRI. PT INCONTINENT OF BOWEL. LOOSE STOOL NOTED. PT ON ISOLATION FOR MRSA. PT BED ALARM, FALL RISK, HOURLY ROUNDING, CALL LIGHT WITHIN REACH, WILL CONTINUE TO MONITOR.
--- NOTE | 2019-05-09 17:18 | EKG ---
[place] [address] ELECTROCARDIOGRAM REPORT Name: DOT AGUSTIN Room: [address] ADM IN M.R.#: [id number] Admission: 05/08/19 Attend Phys: Keya Rajput MD Discharge: Date of : 59 Report #: [id number] THIS REPORT FOR: //name// [facility] ED Test Date: 2019-05-08 Test Time: 21:13:59 Pat Name: DOT AGUSTIN Department: Room: [facility] Gender: M Assembler Watch Train: [place] : 1955 Requested By: Debbi Enamorado Order Number: [id number] MD: Mart Hawkins Measurements Intervals Shiro Rate: 78 P: 55 SD: 143 QRS: 18 QRSD: 90 T: 99 QT: 420 QTc: 479 Interpretive Statements Sinus rhythm Probable left atrial enlargement Probable left ventricular hypertrophy Nonspecific T abnormalities, lateral leads Borderline prolonged QT interval Compared to ECG 04/01/2019 01:18:41 T-wave abnormality now present Electronically Signed On 05-09-2019 17:17:48 FAMILY RESOURCE MANAGEMENT PROFESSOR by Mart Hawkins [email or web address] <ELECTRONICALLY SIGNED> By: Mart Hawkins MD, FACC 05/09/19 1717 12 12 Mart Hawkins MD, FAC /EPI
[2019-05-09 20:00] VITALS: BP 111/62
[2019-05-10 00:37] VITALS: BP 114/59
[2019-05-10 04:20] VITALS: BP 123/62
--- NOTE | 2019-05-10 05:49 | NUR ---
PT CARE ASSUMED AT 1930. SAT MAINTAINED IN RA. PT IS CONFUSED AND FORGETFUL. INCONTINENT OF BOWEL. DENIES PAIN AND SOB. CALL LIGHT WITHIN REACH AND BED IN LOW POSITION. HOURLY ROUNDING DONE FOR PT SAFETY.
[2019-05-10 06:13] LABS: ALBUMIN 0.6 g/dL (3.4-5.0); CALCIUM 6.6 mg/dL (8.5-10.1); CREATININE 7.8 mg/dL (0.6-1.3); POTASSIUM 3.4 mmol/L (3.5-5.1); TOTAL BILIRUBIN 0.2 mg/dL (<0.1-1.0); TOTAL PROTEIN 4.3 g/dL (6.4-8.2)
[2019-05-10 07:41] VITALS: BP 120/60
--- NOTE | 2019-05-10 11:21 | CON ---
[address] [address] CONSULTATION Name: DOT AGUSTIN Room: [address] IN M.R.#: [id number] Admission: 05/08/19 Attend Phys: Keya Rajput MD Discharge: Date of : 59 Report #: [id number] THIS REPORT FOR: //name// CC: MANUEL physician/PCP Keya Rajput DATE OF SERVICE: 05/09/2019 INFECTIOUS DISEASE CONSULTATION ATTENDING PHYSICIAN: Dr. Rajput. REASON FOR EVALUATION: Chronic process involving his right foot, particularly the lateral aspect of the fifth toe. HISTORY OF PRESENT ILLNESS: Chart reviewed, the patient examined. This is a 64-year-old gentleman with diabetes, severe vasculopathy, has been complicated by previous transmetatarsal amputation of his left foot. He has known history of stroke with right lower extremity paresis, history of cardiomyopathy with congestive heart failure, who has presented to the Emergency Room with suspected infection. He notes he has peripheral neuropathy as well. Does admit to fevers, chills, mild shortness of breath. He says he had recent headaches. He attributes to migraines. He does have ongoing issue with epigastric type pain, has not been evaluated thus far. Initial labs showed a creatinine of 8.0, lactic acid of 0.7. CRP of 355.8. Chest x-ray reveals a question of right basilar infiltrate. Plain film of the foot, question of a subtle fracture. White count was markedly elevated at 32.2 with a sed rate of 150. Blood cultures are sterile thus far. He denies any significant weight loss. He is not encephalopathic. ALLERGIES: None known. MEDICATIONS: Include vancomycin, tamsulosin, ferrous sulfate, atorvastatin, Zosyn, ergocalciferol, aspirin, pantoprazole, finasteride, amlodipine, isosorbide mononitrate, carvedilol. PAST MEDICAL HISTORY: As described above, diabetes mellitus diagnosed 2-3 years ago, was complicated by stroke with right lower extremity paresis, peripheral arterial disease, hypertension, cardiomyopathy, congestive heart failure, bipolar disease, chronic renal failure. SOCIAL HISTORY: Nonsmoker, no ethanol or illicit drug use. FAMILY HISTORY: Noncontributory. REVIEW OF SYSTEMS: [place] [address] CONSULTATION Name: DOT AGUSTIN Room: [address]#: [id number] Admission: 05/08/19 Attend Phys: Keya Rajput MD Discharge: Date of : 59 Report #: [id number] PHYSICAL EXAMINATION: GENERAL: He appears somewhat chronically ill, undernourished. He is in [id number] distress. VITAL SIGNS: Temperature 98.2, pulse 85, respirations 18, blood pressure 166/82. SKIN: Warm, dry. HEENT: Normocephalic. Extraocular muscles intact. NECK: Supple. LUNGS: Generally clear to auscultation. HEART: Regular. I do not appreciate murmur. ABDOMEN: Soft, nontender. AND RECTAL: Deferred. EXTREMITIES: Distal right lower extremity has chronic changes involving the lateral aspect including the fifth toe and some color changes on the fourth toe as well, transmetatarsal amputation, well healed on the left side. NEUROLOGIC: He does have apparent tremors which he states are new within the last 3 months. LABORATORY DATA: INR 1.2. Electrolytes: Sodium 133, potassium 3.9, chloride 101, bicarbonate is 17, anion gap of 15, BUN and creatinine 74 and 8.0, glucose of 107. Albumin of 1.1, total protein 5.6. Lactic acid 0.7. CRP elevated at 355.8. CBC: White count of 32.2, H and H 8.4 and 25.0, platelets of 333. Sed rate of 150. Blood cultures sterile thus far. ASSESSMENT AND PLAN: Necrotic process involving the lateral aspect of the right foot. I suspect infectious component, likely has osteomyelitis. MRI is pending. Clearly, chronically ill for quite some time. He has multiple other complaints. In addition to the foot, signs and symptoms really have been explained thus far. We will continue empiric therapy at this point, await the MRI of the foot. We will do a CT abdomen and pelvis to evaluate this stomach pain, as I fear an occult process, may well need head imaging as well. Remains quite tenuous. <ELECTRONICALLY SIGNED> By: Philip Hinojosa MD 05/10/19 1121 0957 [id number] Hinojosa MD /nt
[2019-05-10 11:30] VITALS: BP 95/50
--- NOTE | 2019-05-10 13:53 | CON ---
[address] [address] CONSULTATION Name: DOT AGUSTIN Room: [address] IN .R.#: [id number] Admission: 05/08/19 Attend Phys: Keya Rajput MD Discharge: Date of : 59 Report #: [id number] THIS REPORT FOR: //name// CC: MANUEL physician/PCP Keya Rajput DATE OF SERVICE: 05/09/2019 ADMISSION DIAGNOSIS: Infection with gangrene, right foot. HISTORY OF PRESENT ILLNESS: The patient is a 64-year-old male admitted through the Emergency Department last night with worsening infection to the right foot. He noticed swelling and discoloration to the right fifth toe. He denies pain as he is insensate from peripheral neuropathy. He relates falling and hitting his foot on a step in his home last week. Upon admission, he denied fevers, chills, vomiting or shortness of breath, but he did have some nausea. He has uncontrolled type 2 diabetes mellitus and admits to not monitoring his glucose or taking medication for his diabetes. He says he does not follow up with primary care physician or specialist regarding his diabetes. He is unemployed, lives at home with his , who recently had a stroke. He denies prior vascular surgery or intervention to either lower extremity. Arterial Doppler was ordered and awaiting completion. Foot radiographs negative for nabila osteomyelitis or subcutaneous emphysema. He is on parenteral Zosyn with good tolerance. PAST MEDICAL HISTORY: Diabetes mellitus, CVA, PAD, hypertension, CHF. ALLERGIES: No known drug allergies. MEDICATIONS: Carvedilol, atorvastatin, isosorbide mononitrate, amlodipine besylate, ferrous sulfate, ergocalciferol, folic acid, calcium carbonate, finasteride, tamsulosin, aspirin 81 mg. LABORATORY DATA: WBC 32.2, RBC 2.77, hemoglobin 8.4, hematocrit 25.0, platelets 333. ESR 150. BUN 74, creatinine 8.0, glucose 107. PHYSICAL EXAMINATION: VITAL SIGNS: Temperature 98.2, pulse 74, respirations 16, blood pressure 152/74. EXTREMITIES: The right great toe has nabila gangrene with brown necrosis. The toe is soft, necrotic with no viable tissue. The adjacent fourth toe is discolored with early stage necrosis. The fifth toe gangrene is extending to the level of the metatarsophalangeal joint. There is localized inflammation consistent with cellulitis. There is no plantar foot ulceration or fluctuance/crepitation or signs of abscess. Both feet are cool to touch with nonpalpable pedal pulses. He has a well-healed left [place] [address] CONSULTATION Name: DOT AGUSTIN Room: [address] IN M.R.#: [id number] Admission: 05/08/19 Attend Phys: Keya Rajput MD Discharge: Date of : 59 Report #: [id number] with calluses to the plantar first and fifth metatarsal heads. No signs of infection to the left foot or lower extremity. IMPRESSION: Soft tissue infection of right foot with gangrene of fourth and fifth toes, type 2 diabetes mellitus, peripheral arterial disease. PLAN: Awaiting arterial Doppler study. I do not recommend surgical intervention at this point until arterial supply is further evaluated. We will paint the toe with Betadine and wrap with dry gauze. We will likely require vascular intervention and partial fifth ray resection and fourth toe amputation. I feel he is at high risk for losing a substantial portion of the right foot. Unsure if Vascular Surgery has been consulted and I will follow up with the arterial Doppler study. In the interim, parenteral antibiotics per Infectious Disease and improvement of blood glucose. <ELECTRONICALLY SIGNED> By: Demarcus Bowie DPM 05/10/19 1353 0801 [id number] Bowie DPM /nt
--- NOTE | 2019-05-10 15:59 | NUR ---
CM ATTEMPTED TO COMPLETE ASSESSMENT 2X TODAY HOWEVER PT WAS BEING SEEN BY OTHER STAFF. CM TO F/U.
[2019-05-10 16:20] VITALS: BP 105/52
--- NOTE | 2019-05-10 18:50 | NUR ---
ASSUME DPT CARE REPORT RECEIVED FROPM NURSE PT IS AOX3 FORGETFUL CONFUSED, DOES NOT COMMUNICATE WELL , LETHARGIC. FOELY PATENT. VSS. MEDICINE GIVEN. WOUND CARE DONE. BETADINE APPLIED ON RIGHT 4TH AND 5TH TOES AND WRAPPED WITH KERLIX. PT DENIES PAIN. PT NPO FOR SX (AMPUTAION OF TOES) SEE CHART. CONSENT SIGNED. PT TOOK A BITE OF BIG MAC AT LUNCH TIME. THIS NURSE CAUGHT PT ON FIRST BITE AND TOOK FOOD AWAY FROM PT. THIS NURSE REINFORCED TO PT THAT HE NEEDS TO STAY NPO FOR THE SCHEDULED SX. SX DELAYED FOR 7 PM DUE TO PT BIG BITE OF MAC. IV RIGHT FOREARM PATENT. ZOSYN CURRENTLY INFUSING . CALL LIGHT AT REACH. CONSENT ALSO OBTAINED FOR PERMANENT HEMODIALYSIS CATHETER PLACEMENT WHICH IS SCHEDUALED FOR THE NEXT DAY. WILL CONTINUE TO MONITOR
[2019-05-10 20:00] VITALS: BP 121/62
[2019-05-11] VITALS (9 sets, daily range): BP systolic 122–158; BP diastolic 57–78
--- NOTE | 2019-05-11 04:52 | NUR ---
ASSUMED PT CARE AT APPROX 1930. PT IS AWAKE AND ORIENTED X4 B UT FORGETFUL. VSS ON ROOM AIR. FOUNDRY HAND IN PLACE TRACING SR. ASSESSMENT DONE AND CHARTED. RIGHT FOOT SURGERY FOR 1900 IS POSTPONED AND WILL BE RESCHEDULED PER TELEPHONE ORDER BY DR CAMPOS. PT IS INFORMED. RENAL DIET RESUMED AND PT IS ADVISED TO HAVE NOTHING PER [facility] POST MIDNIGHT FOR TUNNELED DIALYSIS CATHETER PLACEMENT IN AM. PT IS ABLE TO SLEEP MOST OF THE NIGHT. CALL LIGHT WITHIN REACH. HOURLY ROUNDING DONE FOR PT SAFETY.
[2019-05-11 05:16] LABS: MCHC 33.2 g/dL (28.0-37.0); MCV 90.3 fL (80.0-100.0); MPV 8.2 fl. (7.2-11.1); RBC 2.11 mil/uL (4.50-6.00); RDW-CV 13.4 % (10.5-14.5); WBC 23.6 thou/uL (4.0-11.0)
[2019-05-11 05:20] LABS: HEMOGLOBIN 6.3 gm/dL (14.0-18.0)
[2019-05-11 05:26] LABS: CALCIUM 6.8 mg/dL (8.5-10.1); CREATININE 8.4 mg/dL (0.6-1.3); MAGNESIUM 1.5 mg/dL (1.8-2.4); POTASSIUM 3.6 mmol/L (3.5-5.1)
[2019-05-11 08:53] LABS: MCH 30.6 pg (26.0-34.0); MCHC 33.9 g/dL (28.0-37.0); MCV 90.2 fL (80.0-100.0); RBC 1.94 mil/uL (4.50-6.00); RDW-CV 13.5 % (10.5-14.5); WBC 23.6 thou/uL (4.0-11.0)
[2019-05-11 08:58] LABS: HEMATOCRIT 17.5 % (42.0-52.0); HEMOGLOBIN 5.9 gm/dL (14.0-18.0)
[2019-05-11 09:03] LABS: APTT 39.5 Seconds (25.0-31.3); INR 1.1; PROTIME 11.3 Seconds (9.20-11.50)
--- NOTE | 2019-05-11 09:49 | NUR ---
ASSUMED PT CARE REPORT RECEIVED FROM NURSE. PT IS AOX2 CONFUSED AND FORGETFUL. ON RA. PT HGB 5.9 , BLOOD TRANSFUSION STARTED AT 0930. VSS CAHRTED. TEMP 99.[address] AWARE. NO FURTHER ORDER RECEIVED FOR LOW HGB. PT LEFT FLOOR AT 0935 FOR DIALYSIS CATHETER PLACEMENT. ON ISOLATION FOR MRSA. JOSEPH CATHETER IN PLACE IS PATENT. R FOOT DRESSING INTACT. WILL CONTINUE TO MONITOR
--- NOTE | 2019-05-11 11:07 | NUR ---
pt back from ir at 1100/ blood transfusion going. pt is more lucid. vss. resting in bed. accucheck , offer lunch. insulin given before lunch. tong continue to monitor
[2019-05-11 11:53] LABS: HEMATOCRIT 24.6 % (42.0-52.0)
[2019-05-11 11:54] LABS: HEMOGLOBIN 8.2 gm/dL (14.0-18.0)
[2019-05-11 12:43] LABS: % SATURATION 108 % (20-39); IRON 39 ug/dL (50-175)
--- NOTE | 2019-05-11 13:23 | NUR ---
hgb lab 8.2. pt left for dialysis at 1320. report given to dialysis nurse.
--- NOTE | 2019-05-11 14:56 | NUR ---
INITIAL ASSESSMENT: Pt evaluated for d/c planning needs. Reviewed chart. Pt was hospitalized in inpatient rehab unit at [facility] in April and returned home with . Pt has cane at home. Pt d/c home with [facility]. Plan is for pt to return home on d/c from hospital. Will remain available to assist as needed.
[2019-05-11 21:20] LABS: ABSOLUTE BASOPHILS 0.1 thou/uL (0.0-0.2); ABSOLUTE EOSINOPHILS 0.2 thou/uL (0.0-0.7); ABSOLUTE LYMPHOCYTES 0.6 thou/uL (0.8-5.3); ABSOLUTE MONOCYTES 1.7 thou/uL (0.0-1.2); ABSOLUTE NEUTROPHILS 21.7 thou/uL (1.6-8.1); BASOPHILS 0.3 %; EOSINOPHILS 0.8 %; HEMATOCRIT 27.6 % (42.0-52.0); HEMOGLOBIN 9.3 gm/dL (14.0-18.0); LYMPHOCYTES 2.5 %; MCH 30.8 pg (26.0-34.0); MCHC 33.7 g/dL (28.0-37.0); MCV 91.4 fL (80.0-100.0); MONOCYTES 7.1 %; MPV 8.1 fl. (7.2-11.1); NUCLEATED RBCS 0 /100WBC; PLATELET COUNT* 386 thou/uL (150-400); POLYS 89.3 %; RBC 3.01 mil/uL (4.50-6.00); RDW-CV 13.6 % (10.5-14.5); WBC 24.3 thou/uL (4.0-11.0)
[2019-05-12] VITALS: BP 154/74; BP 183/73
--- NOTE | 2019-05-12 02:33 | NUR ---
ASSUMED PT CARE AT APPROX 1940. PT IS FOUND SITTING ON THE FLOOR, PT IS STILL CONFUSED AND FORGETFUL. POST FALL ASSESSMENT AND VITAL SIGNS DONE. NO INJURIES NOTED, PT DENIES PAIN/ DR FOX INFORMED. HIGH FALL PRECAUTIONS IN PLACE. PT IS CLOSELY MONITORED.
[2019-05-12 04:00] VITALS: BP 152/68
[2019-05-12 05:36] LABS: ALBUMIN 0.8 g/dL (3.4-5.0); CALCIUM 7.1 mg/dL (8.5-10.1); POTASSIUM 3.3 mmol/L (3.5-5.1); TOTAL BILIRUBIN 0.4 mg/dL (<0.1-1.0); TOTAL PROTEIN 5.1 g/dL (6.4-8.2)
[2019-05-12 05:37] LABS: CREATININE 6.5 mg/dL (0.6-1.3)
[2019-05-12 08:00] VITALS: BP 173/75
[2019-05-12 10:00] VITALS: BP 173/75
[2019-05-12 11:21] VITALS: BP 162/71
[2019-05-12 16:09] LABS: HEPATITIS B SURFACE AG Negative (Negative)
--- NOTE | 2019-05-12 18:43 | NUR ---
PT VSS, PT A&OX4 WITH BASELINE CONFUSED DUE TO DEMENTIA. PT SINUS RHYTHM ON TELE, PT ON BEDREST DUE TO AMPUTATION OF 4TH & 5TH METATARSAL AND TOES. HOURLY ROUNDING PERFORMED, POSSESSIONS AND CALL LIGHT WITHIN REACH. ACHS ACCUCHECKS.
[2019-05-12 19:30] VITALS: BP 126/63
[2019-05-13] VITALS: BP 132/62
[2019-05-13 04:00] VITALS: BP 142/67
[2019-05-13 04:31] LABS: HEMATOCRIT 22.6 % (42.0-52.0); HEMOGLOBIN 7.7 gm/dL (14.0-18.0); MCH 30.2 pg (26.0-34.0); MCHC 33.9 g/dL (28.0-37.0); MCV 89.1 fL (80.0-100.0); MPV 7.7 fl. (7.2-11.1); RBC 2.53 mil/uL (4.50-6.00); RDW-CV 13.5 % (10.5-14.5); WBC 23.1 thou/uL (4.0-11.0)
[2019-05-13 04:59] LABS: CALCIUM 6.9 mg/dL (8.5-10.1); MAGNESIUM 1.5 mg/dL (1.8-2.4); POTASSIUM 3.8 mmol/L (3.5-5.1)
[2019-05-13 05:13] LABS: CREATININE 4.9 mg/dL (0.6-1.3)
--- NOTE | 2019-05-13 05:41 | NUR ---
PT SLEPT MOST OF SHIFT. ASSESSMENT DOCUMENTED. MEDS GIVEN PER E-SEP. IV PATENT, FLUIDS INFUSING. NO REPORTS OF PAIN THIS SHIFT. DRESSING ON FOOT REMAINED C/D/I. FALL PRECAUTIONS IN PLACE. WILL CONTINUE WITH PLAN OF CARE.
[2019-05-13 08:00] VITALS: BP 148/70
[2019-05-13 15:45] VITALS: BP 171/69
[2019-05-13 19:30] VITALS: BP 126/60
--- NOTE | 2019-05-13 19:56 | NUR ---
PT VSS, PT SR ON TELE, A&OX4 WITH BASELINE CONFUSION FROM DEMENTIA. PT HAD 1L FLUID DIALYZED TODAY. PT TIRED AFTER DIALYSIS BUT STABLE. HIGH FALL RISK, PT POSSESSIONS AND CALL LIGHT WITHIN REACH. HOURLY ROUDNING PERFORMED
[2019-05-14] VITALS: BP 127/56
[2019-05-14 04:00] VITALS: BP 136/60
[2019-05-14 04:19] LABS: HEMATOCRIT 20.8 % (42.0-52.0); MCH 30.1 pg (26.0-34.0); MCHC 33.7 g/dL (28.0-37.0); MCV 89.1 fL (80.0-100.0); MPV 7.4 fl. (7.2-11.1); RBC 2.34 mil/uL (4.50-6.00); RDW-CV 13.3 % (10.5-14.5); WBC 19.5 thou/uL (4.0-11.0)
[2019-05-14 04:44] LABS: CALCIUM 6.7 mg/dL (8.5-10.1); MAGNESIUM 1.5 mg/dL (1.8-2.4); POTASSIUM 3.6 mmol/L (3.5-5.1)
[2019-05-14 04:47] LABS: CREATININE 3.4 mg/dL (0.6-1.3)
--- NOTE | 2019-05-14 05:36 | NUR ---
PT SLEPT MOST OF SHIFT. ASSESSMENT DOCUMENTED. MEDS GIVEN PER E-SEP. NEW IV STARTED. NO REPORTS OF PAIN. PT REPOSITIONED THORUGH NIGHT. PT KICKED OF DRESSING ON FOOT, KRELIX REPLACED AND DRESSING REINFORCED. WILL CONTINUE WITH PLAN OF CARE.
[2019-05-14 08:00] VITALS: BP 152/68
[2019-05-14 11:40] VITALS: BP 147/68
[2019-05-14 15:37] VITALS: BP 116/56
--- NOTE | 2019-05-14 18:51 | NUR ---
PT VSS, PT SINUS ARRYTHMIA AND SR W/ PACS & PVCS. A&OX4. PT STAND BY ASSIST. HOURLY ROUNDING PERFORMED, POSSESSIONS AND CALL LIGHT WITHIN REACH. PT VOIDS IN TOILET.
--- NOTE | 2019-05-14 18:55 | NUR ---
PT VSS, PT DROWSY MOST OF THE DAY, ORIENTED TO SELF AND LOCATION ONLY TODAY. SINUS RHYTHM ON TELE. PT REQUIRED FOOD TRAY SET UP TODAY. PATIENT ON BEDREST. PHYSICAL THERAPY INQUIRED ABOUT WEIGHT BEARING ON FOOT WITH APUTATION ON 05/12/19. DR BARBER INFORMED PATIENT WOULD NOT BE WEIGHT BEARING ON THE FOOT AGAIN. HOURLY ROUNDING PERFORMED, POSSESSIONS AND CALL LIGHT WITHIN REACH.
[2019-05-14 20:30] VITALS: BP 116/59
[2019-05-15 04:00] VITALS: BP 135/65
[2019-05-15 04:44] LABS: CALCIUM 6.5 mg/dL (8.5-10.1); HEMATOCRIT 20.6 % (42.0-52.0); MAGNESIUM 1.5 mg/dL (1.8-2.4); MCH 30.3 pg (26.0-34.0); MCHC 33.8 g/dL (28.0-37.0); MCV 89.8 fL (80.0-100.0); POTASSIUM 3.9 mmol/L (3.5-5.1); RBC 2.29 mil/uL (4.50-6.00); WBC 19.5 thou/uL (4.0-11.0)
[2019-05-15 04:56] LABS: CREATININE 5.2 mg/dL (0.6-1.3)
--- NOTE | 2019-05-15 06:23 | NUR ---
PT SLEPT MOST OF SHIFT. ASSESSMENT DOCUMENTED. MEDS GIVEN PER E-MAR. IV PATENT. PT REPORTED SOME PAIN IN RIGHT FOOT BUT STATED HE DID NOT WANT ANY PAIN MEDICATIONS. PT REPOSTIONED THROUGH NIGHT. WILL CONTINUE WITH PLAN OF CARE.
--- NOTE | 2019-05-15 11:20 | NUR ---
CM faxed referral to [facility] for outpt dialysis setup. Spoke with Dr, rehab consult to be placed. Planned dc once outpt dialysis arranged. Following.
[2019-05-15 16:47] VITALS: BP 138/84
--- NOTE | 2019-05-15 17:36 | NUR ---
PT TRANSFERRED TO ROOM 311 AT 1630. PT IS IN BED, DENIES ANY CONCERNS. BED ALARM AND CALL LIGHT IN PLACE. WILL CONTINUE PLAN OF CARE
[2019-05-15 20:00] VITALS: BP 126/63
--- NOTE | 2019-05-16 05:33 | NUR ---
PT HAS SLEPT WELL OVERNIGHT. AO TO SELF, HAS DENIED NEEDS OVERNIGHT. INCONTINENT LARGE DK BROWN BM SOFT. WOLFGANG CARE GIVEN AND BARRIER CREAM APPLIED. TURNED AND REPOSITIONED Q2 HOURS AND PRN FOR SKIN CARE AND COMFORT. BED ALARM ON FOR SAFETY. TAKES PILLS WHOLE WITH WATER. JOSEPH DRAINING YELLOW URINE. DRSG CDI TO R FOOT. R FOOT ELEVATED ON PILLOW. R CHEST TEMP DIALYSIS CATH. LFA SL. HS ACCUCHECK 172, INSULIN GIVEN WITH SNACK. DNR.
[2019-05-16 07:45] VITALS: BP 153/69
--- NOTE | 2019-05-16 08:40 | NUR ---
[facility] chair time is MWF at 3pm, to begin on 05/17. Confirmation letter on chart
--- NOTE | 2019-05-16 14:31 | NUR ---
WOUND CARE NOTE: REASSESSMENT OF RIGHT FOOT; ASSESSMENT OF SACRUM. PATIENT WITH PARTIAL THICKNESS BREAKDOWN TO THE SACRAL AREA. PINK, MOIST. REQUESTED NURSING TEAM TO APPLY BARRIER OINTMENT. RIGHT FOOT. PATIENT IS S/P AMPUTATION. PATIENT SEEN WITH PODIATRY. DISCUSSED OPTIONS OF FURTHER AMPUTATION OF FOREFOOT OR BKA. UNSURE IF PATIENT UNDERSTANDS THE OPTIONS WELL. THE 3RD TOE IS NOW BLACK AND STARTING TO MUMMIFY. WOUND BED IS RED, MOIST, BUT NOT A LOT OF DRAINAGE NOTED. WOUND WAS CLEANSED. APPLIED AQUACEL AG OVER OPEN ULCERATION. COVERED WITH ABD. SECURED WITH KERLIX AND KANDI. RECOMMEND KEEP OFF FOOT ENCOURAGE GOOD NUTRITION/HYDRATION BARRIER OINTMENT TO SACRAL AREA BID AND PRN. TURN Q2 HOURS-KEEP OFF WOUND LIMIT HOB <30 DEGREES LIMIT LAYERS OF LINEN UNDER PATIENT
[2019-05-16 16:00] VITALS: BP 150/65
--- NOTE | 2019-05-16 16:55 | NUR ---
ANIL received message from Claudette with [facility] [phone] confirming pt acceptance to [facility] chair time MWF 3 pm. SW to continue to follow to assist with safe dc planning.
--- NOTE | 2019-05-16 17:06 | PATH ---
[address] [address] PATHOLOGY RPT PROCEDURE Name: DOT AGUSTIN Room: [address] IN M.R.#: [id number] Admission: 05/08/19 Date of : 59 Discharge: Report #: [id number] Path Case #: [id number] LCA Accession Number: [id number] . 01 Material submitted: . toe - RIGHT 4TH AND 5TH TOE AND RIGHT 4TH AND 5TH METATARSALS. Modifiers: right, fourth, fifth . 01 Clinical history: . Infection with gangrene right foot . 02 Diagnosis: Right fourth and fifth toes, right fourth and fifth metatarsals: - Two benign toes with non-specific acute inflammation of soft tissues and osteomyelitis of phalangeal bones. - Two separate osteocartilaginous segments, each with osteomyelitis predominantly at articular end with opposite transection ends free of osteomyelitis. (KATHY/db; 05/16/2019) LBQ 05/16/2019 1525 Local . 02 Electronically signed: . Ankit Carrera MD, Pathologist NPI- [id number] . 01 Gross description: . The specimen is received in formalin, labeled "Dot Agustin, right fourth and fifth toes, right fourth and fifth metatarsals". Received are two amputated digits, which are loosely attached to one another, measuring 4.2 x 3.2 x 2.0 cm in greatest dimensions. The bone margin of the fourth toe is jagged in appearance. The bone margin of the fifth toe is smooth and concave in appearance, consistent with disarticulation. The bone and soft tissue margins of the fourth toe are inked black and the bone and soft tissue margins of the fifth toe are inked blue. The nail of the fourth toe is pale watt to cintron-watt in appearance. The epidermal surface is pale cintron to cintron-brown and sloughing in appearance. The nail of toe five is absent. The epidermal surface is pale cintron to dusky cintron-brown in appearance. . Also received within the specimen container are two segments of bone, consistent with metatarsals, measuring 3.3 x 2.2 x 1.6 and 3.9 x 2.0 x 1.4 cm in greatest dimensions. Each segment displays one blunt margin, consistent with transection, and one smooth, convex margin, consistent with disarticulation. The transected margin of the smaller segment is inked black and the transected margin of the larger segment is inked blue. The disarticulated aspect of the smaller segment is cintron-watt in appearance. The specimen is submitted representatively as follows: . [place] [address] PATHOLOGY RPT PROCEDURE Name: DOT AGUSTIN Room: [address] IN M.R.#: [id number] Admission: 05/08/19 Date of : 59 Discharge: Report #: [id number] Path Case #: [id number] A1-A2 full-thickness longitudinal cross-section of toe 4, submitted proximal to distal aspects, following decalcification A3-A4 full-thickness longitudinal cross-section of toe 5, submitted from proximal to distal aspects, following decalcification A5 full-thickness longitudinal cross-section of smaller metatarsal, following decalcification. A6-A7 full-thickness longitudinal cross-section of larger metatarsal submitted from transected to disarticulated aspects, following decalcification. (CAA; 05/15/2019) QAC/QAC 05/16/2019 1521 Local . 02 Pathologist provided ICD-10: M79.9, M86.171 . 02 CPT . 994886, [id number] Specimen Comment: A courtesy copy of this report has been sent to [phone] Specimen Comment: [phone] Specimen Comment: Report sent to / DR ENRIQUE Performed at: 01 [facility] [address], [place], [place] [id number] MD Rony Roger MD Phone: [phone] Performed at: 02 [facility] [place], [place] [id number] MD Ankit Carrera MD Phone: [phone]
--- NOTE | 2019-05-16 18:33 | NUR ---
PT AWAKE/ALERT. ORIENTED TO PERSON, HX DEMENTIA. VISION IMPAIRED. PT REMAINS NWB TO RLE. PT UP W/ ASSIST PER DR ENRIQUE. PT TAKES PILLS WHOLE, ONE AT A TIME. DR CAMPOS SAW PT FOOT TODAY. WOUND CARE NURSE CHANGED DRESSING. DRESSINGS REMAIN C/D/I. PT JOSEPH PATENT, CLEAR YELLOW URINE PRESENT IN COLLECTION BAG. PT Q2H TURN/REPOSITIONING. PT DIALYSIS M/W/F, TEMP CATH TO R CHEST. NO REDNESS AT SITE. PT REMAINS IN ISOLATION FOR MRSA. CASE MANAGEMENT WORKING ON DC PLAN AT THIS TIME. PT RESTS IN ROOM WITH CALL IGHT IN REACH, BED ALARM TURNED ON. WILL CONTIUE TO MONITOR.
[2019-05-16 20:00] VITALS: BP 130/60
--- NOTE | 2019-05-17 06:36 | NUR ---
PT SLEPT WELL WITHOUT COMPLAINTS.DRSG CDI TO R FOOT. JOSEPH DRAINING 200 ML YELLOW URINE. TEMP DIALYSIS CATH R CHEST. RFA SL IV. HS ACCUCHECK 150, INSULIN GIVEN WITH ENSURE PUDDING. TAKES PILLS WHOLE WITH WATER. AO TO SELF AND SITUATION, ANSWERS MOSTLY YES AND NO TO QUESTIONS. DNR. REMAINS ON CONTACT ISOLATION FOR MRSA. INCONTINENT BM SMEARS OVERNIGHT, WOLFGANG CARE GIVEN AND BARRIER CREAM APPLIED. BED ALARM ON FOR SAFETY, CALL LITE IN EASY REACH.TURNED AND REPOSITIONED Q2 HOURS AND PRN FOR SKIN CARE AND COMFORT.
[2019-05-17 07:45] VITALS: BP 137/60
[2019-05-17 17:15] VITALS: BP 161/69
[2019-05-17 17:44] LABS: HEMATOCRIT 24.2 % (42.0-52.0); HEMOGLOBIN 8.2 gm/dL (14.0-18.0); MCH 30.5 pg (26.0-34.0); MCHC 33.9 g/dL (28.0-37.0); MPV 7.1 fl. (7.2-11.1); RBC 2.68 mil/uL (4.50-6.00); RDW-CV 13.5 % (10.5-14.5); WBC 16.8 thou/uL (4.0-11.0)
[2019-05-17 18:00] LABS: CALCIUM 7.5 mg/dL (8.5-10.1); POTASSIUM 3.6 mmol/L (3.5-5.1)
[2019-05-17 18:03] LABS: CREATININE 2.3 mg/dL (0.6-1.3)
--- NOTE | 2019-05-17 18:31 | NUR ---
PT AWAKE/ALERT. PT MEDS HELD UNTIL RETURNED FROM DIALYSIS. PT TURNED Q2 THROUGHOUT SHIFT. URINARY CATHETER PATENT, YELLOW URINE IN COLLECTION BAG. DRESSING TO R FOOT REMAINS C/D/I. PER DR CAMPOS, PROCEDURE PLANNED FOR TOMORROW, AFTERNOON MOST LIKELY, BUT TIME UNDECIDED AT THIS TIME. PT REMIANS ON ISOLATION FOR MRSA. PT UP W/ ASSIST, W/GAIT BELT. VANC ADMINISTERED IV BY DIALYSIS FOLLOWING TREATMENT. PER BURRER MARKER AXLE, 3L PULLED FROM PT DURING TX. PT UP TO CHAIR FOR MEALS, WITHOUT DIFFICULTY OR COMPLAINT. LAB CONTACTED THIS RN WITH PLATELET RESULTS OF 682. PHYSICIAN NOTIFIED BY TEXT/MESSAGE. 175 ML URINE OUTPUT THIS SHIFT. PT RESTS IN ROOM WITH CALL LIGHT IN REACH. WILL CONTINUE TO MONITOR.
[2019-05-17 20:20] VITALS: BP 120/59
[2019-05-18 04:14] LABS: HEMATOCRIT 21.1 % (42.0-52.0); MCH 30.2 pg (26.0-34.0); MCHC 33.3 g/dL (28.0-37.0); MCV 90.8 fL (80.0-100.0); MPV 7.3 fl. (7.2-11.1); RBC 2.32 mil/uL (4.50-6.00); RDW-CV 13.4 % (10.5-14.5); WBC 15.2 thou/uL (4.0-11.0)
[2019-05-18 04:40] LABS: ALBUMIN 0.8 g/dL (3.4-5.0); CALCIUM 6.9 mg/dL (8.5-10.1); CREATININE 3.2 mg/dL (0.6-1.3); MAGNESIUM 1.7 mg/dL (1.8-2.4); POTASSIUM 4.1 mmol/L (3.5-5.1); TOTAL BILIRUBIN 0.2 mg/dL (<0.1-1.0); TOTAL PROTEIN 5.7 g/dL (6.4-8.2)
--- NOTE | 2019-05-18 04:57 | NUR ---
VSS RA. MEDS GIVEN ORDERED. ISOLATION MAINTAINED. DRESSING TO RT FOOT C/D/I, LEG ELEVATED ON PILLOW. INCONTINENT BOWEL. JOSEPH IN PLACE. NPO AT MIDNIGHT. PT REPOSITIONED Q2H. WILL CONTINUE TO MONITOR.
[2019-05-18 07:30] VITALS: BP 142/66
[2019-05-18 12:28] VITALS: BP 122/59; BP 124/62; BP 130/59; BP 134/67
[2019-05-18 15:20] VITALS: BP 142/66
[2019-05-18 16:00] VITALS: BP 124/62
[2019-05-18 16:28] VITALS: BP 139/62
--- NOTE | 2019-05-18 16:50 | NUR ---
PATIENT NPO THIS SHIFT FOR SURGERY THIS EVENING WITH DR. CAMPOS. IV SL. PATIENT GIVEN 1 UNIT OF PRBC'S FOR HGB OF 7.0, TOLERATED WITHOUT DIFFICULTY. TURNED Q2. INCONTINENT OF BOWEL X 2. JOSEPH REMAINS IN PLACE WITH CLEAR YELLOW URINE.
[2019-05-18 19:57] VITALS: BP 133/65
[2019-05-19 00:52] VITALS: BP 148/73
[2019-05-19 03:55] LABS: HEMATOCRIT 24.7 % (42.0-52.0); HEMOGLOBIN 8.3 gm/dL (14.0-18.0); MCH 30.1 pg (26.0-34.0); MCHC 33.8 g/dL (28.0-37.0); MCV 88.9 fL (80.0-100.0); MPV 7.5 fl. (7.2-11.1); RBC 2.77 mil/uL (4.50-6.00); RDW-CV 14.3 % (10.5-14.5); WBC 19.1 thou/uL (4.0-11.0)
[2019-05-19 04:08] LABS: CALCIUM 7.3 mg/dL (8.5-10.1); POTASSIUM 3.9 mmol/L (3.5-5.1)
[2019-05-19 04:11] LABS: CREATININE 4.6 mg/dL (0.6-1.3)
[2019-05-19 06:13] VITALS: BP 143/60
[2019-05-19 07:30] VITALS: BP 136/61
[2019-05-19 16:00] VITALS: BP 133/67
--- NOTE | 2019-05-19 16:12 | NUR ---
ANIL called Shara with [facility] and left a message providing pt status still med surg at this time and dc plan and date unknown at this time. ANIL to continue to follow to assist with safe dc planning.
--- NOTE | 2019-05-19 16:16 | NUR ---
PATIENT HAD DIALYSIS THIS AM, 2.8L REMOVED. TURNED Q2. PHOTOS TAKEN OF RIGHT FOOT INCISION SITE AND DRESSING CHANGED BY WOUND CARE. PATIENT PT/OT TODAY, NWB RIGHT FOOT. PATIENT HAD 3 LARGE LOOSE BM'S TODAY, PER DR. METZGER IF STOOLS CONTINUE INTO THE NIGHT SEND A SAMPLE FOR CDIFF. VITALS REMAIN STABLE. PATIENT TOLERATING DIET. IV VANC INFUSED AFTER DIALYSIS ORDERED. REMAINS IN CONTACT PRECAUTIONS.
[2019-05-19 22:00] VITALS: BP 138/66
--- NOTE | 2019-05-20 05:39 | NUR ---
PATIENT SLEPT PART OF THE NIGHT. PATIENT REFUSED HIS NIGHT TIME MEDICATIONS STATING HE DIDNT NEED THEM. PATIENT WAS TURNED ABOUT EVERY TWO HOURS. PATIENT HAD ONE SOFT STOOL THAT WAS NOT LIQUID. JOSEPH REMAINS TO DEPENDENT DRAIN. DRESSING TO RIGHT FOOT REMAINS DRY AND INTACT. WILL CONTINUE TO MONITOR.
[2019-05-20 08:10] VITALS: BP 146/70
[2019-05-20 16:25] VITALS: BP 144/75
--- NOTE | 2019-05-20 17:28 | NUR ---
PATIENT RESTING IN BED. PATIENT DENIES ANY PAIN. PATIENT HAS GOOD APPETITE. DRESSING CHANGED TO RIGHT FOOT THIS AFTERNOON. PATIENT HAD BOWEL MOVEMENT THIS AFTERNOON. PATIENT DENIES ANY NEEDS AT THIS TIME. CALL LIGHT WITHIN REACH. BED ALARM ON.
[2019-05-20 20:30] VITALS: BP 125/64
--- NOTE | 2019-05-21 05:49 | NUR ---
PATIENT SLEPT MOST OF THE NIGHT. PATIENT HAD NO COMPLAINTS OF PAIN. DRESSING TO RIGHT FOOT REMAINS INTACT. JOSEPH REMAINS TO DEPENDENT DRAIN. WILL CONTINUE TO MONITOR.
[2019-05-21 07:40] VITALS: BP 142/66
[2019-05-21 15:57] VITALS: BP 117/53
--- NOTE | 2019-05-21 17:50 | NUR ---
PATIENT RESTING IN RECLINER. PATIENT DENIES ANY PAIN. PATIENT SEEN BY DR CAMPOS THIS AM AND WOUND DRESSING CHANGED. PATIENT IS UP WITH ASSIST WITH WALKER, TO REMAIN NON-WEIGHT BEARING TO RIGHT FOOT. PATIENT HAS HAD BOWEL MOVEMENT X 2 TODAY, PATIENT IS INCONTINENT OF BOWELS. JOSEPH CATHETER FOR RETENSION, VERY LITTLE OUTPUT TODAY. DIALYSIS SCHEDULED FOR TOMORROW. PATIENT HAS GOOD APPETITE. PATIENT DENIES ANY NEEDS AT THIS TIME. CALL LIGHT WITHIN REACH.
[2019-05-21 21:00] VITALS: BP 129/42
[2019-05-22 05:19] LABS: HEMATOCRIT 22.4 % (42.0-52.0); HEMOGLOBIN 7.3 gm/dL (14.0-18.0); MCH 29.5 pg (26.0-34.0); MCHC 32.7 g/dL (28.0-37.0); MCV 90.2 fL (80.0-100.0); MPV 7.6 fl. (7.2-11.1); RBC 2.48 mil/uL (4.50-6.00); RDW-CV 13.8 % (10.5-14.5); WBC 13.8 thou/uL (4.0-11.0)
[2019-05-22 05:28] LABS: CALCIUM 7.2 mg/dL (8.5-10.1); CREATININE 6.1 mg/dL (0.6-1.3); PHOSPHORUS* 3.5 mg/dL (2.5-4.9); POTASSIUM 4.5 mmol/L (3.5-5.1)
--- NOTE | 2019-05-22 05:59 | NUR ---
PATIENT SLEPT MOST OF THE NIGHT. IV REMAINS SALINE LOCKED. PATIENT HAD NO COMPLAINTS OF PAIN. DRESSING TO RIGHT FOOT REMAINS INTACT. JOSEPH REMAINS TO DEPENDENT DRAIN. WILL CONTINUE TO MONITOR.
[2019-05-22 07:30] VITALS: BP 145/70
[2019-05-22 12:22] VITALS: BP 164/74
[2019-05-22 15:44] VITALS: BP 133/58
--- NOTE | 2019-05-22 16:48 | NUR ---
PATIENT HAD DIALYSIS THIS AM, 3L REMOVED. VITALS STABLE. VANCOMYCIN IV GIVEN AFTER DIALYSIS PER ORDERS. VANC TROUGH ORDERED FOR AM. IV REMAINS SL. RIGHT FOOT DRESSING CHANGED PER PROTOCOL. INSULIN GIVEN WITH MEALS WHEN REQUIRED. JOSEPH REMAINS IN PLACE DRAINING YELLOW URINE. TURN Q2. SMALL STOOL SMEAR NOTED THIS SHIFT.
--- NOTE | 2019-05-22 17:23 | NUR ---
SW spoke with pt brother about LTC placement options and pt/family preferences are [facility] and [facility]. SW faxed referrals to admissions of facilities and dc pending placement as well as approval for [facility] for dialysis near the facility of acceptance. SW to continue to follow to assist in finalizing safe dc plan/placement.
[2019-05-23 00:28] VITALS: BP 132/58
--- NOTE | 2019-05-23 04:52 | NUR ---
PATIENT SLEPT WELL DURING THIS SHIFT. PT WITH DSG ON RT FOOT; DSG C/D/I. FOOT ELEVATED ON PILLOW. PT DENIES PAIN. PT ASSISTED WITH TURNS Q2H. PT ABLE TO SWALLOW PILLS WHOLE. PT WITH YELLOW URINE IN JOSEPH CATHETER. PT HAS TESSIO CATH IN UPPER RT CHEST. FREQUENTLY USED ITEMS AND CALL LIGHT WITHIN REACH. SIDERAIL UPX3 AND BED ALARM ON. PT REMAINS IN ISOLATION. WILL CONTINUE TO MONITOR.
[2019-05-23 07:20] VITALS: BP 146/70
[2019-05-23] MEDS ORDERED: HUMALOG100 UNIT/1 SUBQ (07:58)
[2019-05-23] MEDS ORDERED: LANTUS SUBQ (07:58)
[2019-05-23] MEDS ORDERED: VANCOMYCIN IVPB (10:13)
[2019-05-23 13:19] VITALS: BP 146/70
--- NOTE | 2019-05-23 15:02 | NUR ---
PATIENT UP IN CHAIR THIS SHIFT, REPOSITIONED IN CHAIR. PT WORKED WITH PATIENT. OPAL HUFF'Jeremías THIS AFTERNOON PER ORDERS. APPT WITH WOUND CARE SET UP TO SEE DR. CAMPOS. AWAITING INSURANCE AUTH FOR PLACEMENT. DRESSING TO RIGHT FOOT CHANGED THIS SHIFT, DR. FINLEY AND PA ALSO HERE THIS AFTERNOON AND CHANGED DRESSING. PHOTOS ON CHART IN CASE OF DISCHARGE. IV REMAINS SL. NO COMPLAINTS OF PAIN. INSULIN GIVEN WITH MEALS WHEN REQUIRED, LANTUS TO START THIS EVENING.
--- NOTE | 2019-05-23 15:32 | NUR ---
SW followed up with all facilities for LTC placement this morning: [facility] did not have any beds available, [facility] said that they would try to accept pt but that it could not be today, [facility] willing to accept and tried for today but challenges in Medicaid payment status and working out finances with pt brother; they said they may be able to accept in the morning. ANIL spoke with [facility] who have pt chair time confirmed still for ability to start tomorrow 05/17 at 3 pm. SW to follow up on arranging the timing depending on dialysis needs, etc. ANIL also spoke with pt brother who was touring [facility]; SW to continue to follow to assist with finalizing dc plan for as soon as LTC facility is able to accept.
[2019-05-23 16:00] VITALS: BP 140/65
[2019-05-23 20:10] VITALS: BP 123/59
[2019-05-24 10:45] VITALS: BP 174/79
--- NOTE | 2019-05-24 12:06 | PATH ---
[address] [address] PATHOLOGY RPT PROCEDURE Name: VAMSIJUAN CUEVAS HARPREET Room: [address] ADM IN M.R.#: [id number] Admission: 05/08/19 Date of : 59 Discharge: Report #: [id number] Path Case #: [id number] LCA Accession Number: [id number] . 01 Material submitted: . toe - RIGHT METATARSALS 1, 2, 3, 4, 5, AND RIGHT TOES 1, 2, 3. Modifiers: right, 1, 2 . 01 Clinical history: . Osteomyelitis . 02 Diagnosis: Right metatarsals 1, 2, 3, 4, 5, and right toes 1, 2, 3: - Three benign toes including great toe, with its attached metatarsal and separate additional two toes with three attached metatarsal bones and with ulcerations, acute inflammation and necrosis of soft tissues and with osteomyelitis identified in phalanx of third toe, with transection margins of all three metatarsals free of osteomyelitis. - Separate segment of bone with extensive acute inflammation of attached soft tissues and with osteomyelitis at orange-inked flat transection edge (A7). - Severe calcifying arteriosclerosis. (KATHY:nory; 05/23/2019) R 05/23/2019 1700 Local . 02 Electronically signed: . Ankit Carrera MD, Pathologist NPI- [id number] . 01 Gross description: . The specimen is received in formalin, labeled "Juan Espinoza, right metatarsals 1, 2, 3, 4, 5, right toes 1, 2, 3". Received is the right hallux with attached metatarsal measuring 12.2 x 3.8 x 3.2 cm in greatest dimensions. The bone margin is smooth and slightly concave in appearance, consistent with disarticulation. The bone and soft tissue margins are inked black. The nail is present displaying a pale watt and grossly unremarkable appearance. The epidermal surface is pale watt to dusky watt-cintron and wrinkled in appearance with no grossly distinct lesions. . Two additional toes with attached metatarsals are present measuring 10.1 x 3.3 x 2.6 cm in greatest dimensions. The proximal margins are blunt in appearance, consistent with transection. There is also a fourth section of metatarsal present at the proximal margin measuring 1.9 x 1.7 x 1.5 cm. The bone and soft tissue margin of the second toe is inked blue. On the second toe, the nail is present, displaying a pale watt and grossly unremarkable appearance. 0.4 cm adjacent to the nail, there is a well-circumscribed, flat and light watt lesion measuring 0.5 x 0.4 cm, which is 2.7 cm from the closest skin [place] [address] PATHOLOGY RPT PROCEDURE Name: JUAN ESPINOZA Room: [address] ADM IN M.R.#: [id number] Admission: 05/08/19 Date of : 59 Discharge: Report #: [id number] Path Case #: [id number] epidermal surface is pale watt to dusky cintron-watt in appearance. The bone and soft tissue margin of the third toe are inked yellow. The nail is present displaying a pale watt to blue-cintron and the toe is pale watt to dusky dark cintron-brown and necrotic in appearance. The transected margin of the fourth section of metatarsal is inked red. . Also received within the specimen container is an additional segment of bone displaying one smooth, convex margin, consistent with disarticulation, and one blunt margin, consistent with transection measuring 4.3 x 2.1 x 1.8 cm. The transected margin is inked orange. The specimen is submitted representatively as follows: . A1 longitudinal cross-section through proximal margin of hallux (black ink), following decalcification A2 horizontal cross-section through lesion near nail to include underlying bone of second toe, following decalcification A3 longitudinal cross-section through proximal margin of second toe (blue ink), following decalcification A4 horizontal cross-section through distal aspect of third toe, following decalcification A5 longitudinal cross-section through proximal margin of third toe (yellow ink), following decalcification A6 longitudinal cross-section through fourth section of metatarsal (red ink), following decalcification A7 longitudinal cross-section through separately submitted segment of bone (orange ink), following decalcification. . Gross photographs are taken. (CAA; 05/22/2019) QAC/QAC 05/24/2019 1146 Local . 02 Pathologist provided ICD-10: M86.171, M86.141 . 02 CPT . 851294, [id number] Specimen Comment: A courtesy copy of this report has been sent to [phone] Specimen Comment: [phone] Specimen Comment: Report sent to / DR ENRIQUE Performed at: [address], [place], [place] [id number] MD Rony Roger MD Phone: [phone] Performed at: [address] [facility] [address] [address], [place], [place] [id number] MD Ankit Carrera MD Phone: [phone]
[2019-05-24 16:31] VITALS: BP 110/59
--- NOTE | 2019-05-24 17:17 | NUR ---
ANIL followed up with [facility] willing to accept pt but needed healthcare DPOA, CM completed with pt and pt brother took DPOA to [facility]. ANIL left multiple messages throughout the day with admissions liaison and eventually spoke with Namita in admissions at [facility] who said that the reason they would not be able to accept today was the attempt to switch OP dialysis clinic to [place] location and not the location that was originally arranged prior to knowlege of placement at time of dc. Namita in admissions said that they would be willing to accept pt tomorrow however even if clinic unable to change chair time/location by tomorrow. ANIL to continue to work with LTC facility in [place] for pt dc on 05/25.
--- NOTE | 2019-05-24 18:04 | NUR ---
PATIENT HAD DIALYSIS THIS AM. VANCOMYCIN GIVEN AFTER DIALYSIS ORDERED. PATIENT UP TO CHAIR WITH THERAPY, REMAINS NWB TO RIGHT FOOT. POSSIBLE PLACEMENT TO [facility] TOMORROW. NO COMPLAINTS OF PAIN. PER DIALYSIS 2.5L REMOVED. DR. CAMPOS HERE THIS AFTERNOON AND DRESSING TO RIGHT FOOT CHANGED.
[2019-05-24 20:10] VITALS: BP 118/55
--- NOTE | 2019-05-25 05:16 | NUR ---
PT ALERT AND ORIENTED. FORGETFUL. DEMENTIA. VSS ON RA. MEDS GIVNE PER EMAR. PT SLEPT WELL THIS SHIFT. DENIES PAIN, N/V. RT FOOT DRESSING C/D/I. UP TO BATHROOM WITH WALKER X1 ASSIST. FALL PRECAUTION IN PLACE. ISOLATION PRECAUTION FOR MRSA IN PLACE. BM NOTED THIS SHIFT. INCONTIENT OF BOWEL AND BLADDER. CALL LIGHT WITHIN REACH. HOURLY ROUNDINGS MADE. WILL CONTINUE TO MONITOR.
[2019-05-25 08:05] VITALS: BP 156/70
[2019-05-25 10:35] VITALS: BP 146/70
--- NOTE | 2019-05-25 12:10 | NUR ---
ANIL received call from Avelina with [facility] providing final approval for pt to admit to [facility] today and scheduled transport for 1 pm. Pt nurse aware. ANIL called pt brother Colten and discussed final dc plan for today; pt/family in agreement with plan. ANIL faxed final dc orders/updated dc summary to [facility] and rehab. ANIL faxed dc summary and recent flow sheets to [facility] dialysis for pt to begin OP dialysis on Wednesday. Plan is for pt to change to clinic closer to [place] but ANIL was told that pt could go to [facility] clinic if needed until clinic change was able to be arranged. [facility] rehab ph [phone].
--- NOTE | 2019-05-25 13:10 | NUR ---
PATIENT DISCHARGED TO [facility]. REPORT GIVEN TO ROSARIO. COPY OF CHART AND DISCHARGE GIVEN TO TRANSPORTER. WOUND CARE COMPLETED. IV REMOVED. TESSIO CATHETER IN PLACE FOR DIALYSIS. DIRTY CLOTHES SENT WITH TRANSPORTER IN BAG. PATIENT DENIES ANY FURTHER NEEDS. PATIENT LEFT BY [facility] PANDEY AT THIS TIME.
--- NOTE | 2019-05-27 09:54 | CON ---
[address] [address] CONSULTATION Name: DOT AGUSTIN Room: [address] IN M.Isaac.#: [id number] Admission: 05/08/19 Attend Phys: Keya Rajput MD Discharge: 05/25/19 Date of : 59 Report #: [id number] THIS REPORT FOR: //name// CC: [facility] physician/PCP Keya Rajput DATE OF SERVICE: 05/21/2019 Postoperative right foot with tarsometatarsal amputation with primary closure. Surgical cultures grew MRSA and group B streptococcus. He is on parenteral vancomycin with dialysis. He has been afebrile, good appetite, low-grade pain. No new labs for review. PHYSICAL EXAMINATION: EXTREMITIES: The incision is well coapted with no inflammation, erythema, drainage, dehiscence or cardinal signs of infection. The foot is warm with no signs of acute vascular embarrassment. The ankle can achieve 90 degrees of dorsiflexion at the ankle. No popliteal adenopathy or calf pain to either extremity. IMPRESSION: Status post tarsometatarsal amputation with primary closure due to osteomyelitis, diabetes mellitus, peripheral artery disease. PLAN: Incision was cleansed and dried. Aquacel Ag, ABDs, Kerlix were applied. The patient to remain strictly nonweightbearing. <ELECTRONICALLY SIGNED> By: Demarcus Bowie DPM 05/27/19 0954 0949 Anuja Bowie DPM /maura
--- NOTE | 2019-05-27 09:54 | CON ---
[address] [address] CONSULTATION Name: DOT AGUSTIN Room: [address] IN M.R.#: [id number] Admission: 05/08/19 Attend Phys: Keya Rajput MD Discharge: 05/25/19 Date of : 59 Report #: [id number] THIS REPORT FOR: //name// CC: [facility] physician/PCP Keya Rajput DATE OF SERVICE: 05/16/2019 CHIEF COMPLAINT: Postoperative right foot with recent partial fourth and fifth ray resections due to osteomyelitis and deep tissue infection. Surgical cultures grew MRSA and group B streptococcus. He is on parenteral vancomycin, continues hemodialysis. He has been evaluated by Vascular Surgery, he has dopplerable pulses proximal to the amputation site, although monophasic waveforms at the ankle level. LABORATORY DATA: WBC 19.5, RBC 2.29, hemoglobin 7.0, hematocrit 20.6, platelets 440. BUN 25, creatinine 5.2, glucose 116. PHYSICAL EXAMINATION: Large postoperative wound to the right distal lateral foot with exposed distal fourth and fifth metatarsals. Extensive fibronecrotic tissue, there is cyanosis and necrosis along the third toe and third metatarsal. The skin is warm. Nonpalpable dorsalis pedis and posterior tibial pulses. No active bleeding, no fluctuance or crepitation. IMPRESSION: Osteomyelitis, right foot with deep tissue infection and extensive soft tissue loss, type 2 diabetes mellitus, peripheral arterial disease, end-stage renal disease, on dialysis. PLAN: The wound was cleansed and redressed with Aquacel Ag, ABDs and Kerlix gauze. The foot may be salvageable, but would require a proximal Lisfranc's type amputation with likely subsequent open wound versus right BK amputation. The patient is likely better served with a below-knee amputation versus extensive surgical debridement, which will result in a much smaller weightbearing surface with open wound and arterial perfusion issues. We will discuss with Vascular Surgery Medicine. <ELECTRONICALLY SIGNED> By: Demarcus Bowie DPM 05/27/19 0954 1155 1217Dakae Bowie DPM /nt
--- NOTE | 2019-05-27 09:54 | OP ---
[address] [address] OPERATIVE REPORT Name: DOT AGUSTIN Room: [address] IN M.R.#: [id number] Admission: 05/08/19 Attend Phys: Keya Rajput MD Discharge: 05/25/19 Date of : 59 Report #: [id number] THIS REPORT FOR: //name// CC: MANUEL physician/PCP Keya Rajput DATE OF SERVICE: 05/12/2019 SURGEON: Demarcus Bowie DPM PREOPERATIVE DIAGNOSES: Gangrene with osteomyelitis, right fourth and fifth metatarsophalangeal joints. POSTOPERATIVE DIAGNOSES: Gangrene with osteomyelitis, right fourth and fifth metatarsophalangeal joints. PROCEDURES: 1. Resection of right distal fourth and fifth metatarsals with the fourth and fifth toes. 2. Excisional debridement of right foot tissue to include muscle, tendon and subcutaneous tissue. ANESTHESIA: MAC. INJECTABLES: 30 mL of a 1:1 mixture of 0.5% Marcaine plain and 1% lidocaine plain. ESTIMATED BLOOD LOSS: Minimal. HEMOSTASIS: None. SUTURES: None. SPECIMENS: Right fourth and fifth distal metatarsals and fourth and fifth toes. CULTURES: 1. Soft tissue, right foot, aerobic and anaerobic. 2. Bone, right distal fifth metatarsal, aerobic and anaerobic. COMPLICATIONS: None. DESCRIPTION OF PROCEDURE: The patient was brought to the OR and placed on the table supine with induction of MAC anesthesia. A local anesthetic block was given and the extremity was prepped and draped aseptically. A #10 blade was used to disarticulate the fourth and fifth toes, which were extremely necrotic with wet gangrene. There was no viable tissue or bleeding at this level. The [address] [address] OPERATIVE REPORT Name: VAMSIDOT HARPREET Room: [address] IN Boris.#: [id number] Admission: 05/08/19 Attend Phys: Keya Rajput MD Discharge: 05/25/19 Date of : 59 Report #: [id number] skin to the dorsal and plantar foot adjacent to the MTP joints was discolored, soft and mushy. I excised this tissue with no active bleeding. A portion of the tissue was sent for aerobic and anaerobic cultures. The distal fourth and fifth metatarsals were discolored and necrotic looking, so I transected them proximally and sent a represented portion of the fifth metatarsal for culture. I debrided the necrotic tissue from the surgical site to include tendons, muscle, aponeurosis and fat. Electrocautery was used for hemostasis. The wound was flushed with sterile saline and dried. It was open, packed with Aquacel Ag and covered with fluffs, ABDs and Kerlix gauze. The patient had very minimal bleeding during the operation. He left the OR with no complication noted. <ELECTRONICALLY SIGNED> By: Demarcus Bowie DPM 05/27/19 0954 1714 [id number] Bowie DPM /maura
--- NOTE | 2019-05-27 09:54 | CON ---
[address] [address] CONSULTATION Name: DOT AGUSTIN Room: [address] IN M.R.#: [id number] Admission: 05/08/19 Attend Phys: Keya Rajput MD Discharge: 05/25/19 Date of : 59 Report #: [id number] THIS REPORT FOR: //name// CC: MANUEL physician/PCP Keya Rajput DATE OF SERVICE: 05/14/2019 CHIEF COMPLAINT: Postoperative day 2 for partial ray resection to right fourth and fifth rays due to osteomyelitis with deep tissue infection. HISTORY OF PRESENT ILLNESS: He is currently on parenteral vancomycin and Unasyn, denies foot pain due to profound diabetic sensory neuropathy. Preoperative cultures grew Streptococcus and MRSA, surgical cultures pending. Blood cultures grew group B streptococcus. He has ESRD, on hemodialysis, dementia, PAD, GERD, chronic anemia, history of CVA, chronic CHF, type 2 diabetes mellitus and septicemia. LABORATORY DATA: WBC 19.5, RBC 2.34, hemoglobin 7.0, hematocrit 20.8, platelets 426, BUN 17, creatinine 3.4, glucose 123 and albumin 0.8. PHYSICAL EXAMINATION: The bandage is dry, clean and intact with no bleed through. I reviewed today's wound photos taken by the nurse and discussed with nurse. The foot had no active bleeding, the skin margins were intact with no further necrosis. The patient's right 1st, 2nd and 3rd toes were cool to the touch with cyanosis noted to the third toe. Negative calf pain bilaterally, no popliteal adenopathy bilaterally. IMPRESSION: 1. Osteomyelitis with deep tissue infection, right foot. 2. Type 2 diabetes mellitus with peripheral artery disease. 3. End-stage renal disease, on dialysis. PLAN: No further foot surgery planned at this time, awaiting Vascular Surgery evaluation. Foot may be salvageable, pending clinical course, guarded prognosis for wound healing. May require BKA amputation, and the patient is aware of this. We will follow the patient during his hospitalization. <ELECTRONICALLY SIGNED> By: Demarcus Bowie DPM 05/27/19 0954 [id number] Bowie DPM /nt
--- NOTE | 2019-05-27 09:54 | OP ---
[address] [address] OPERATIVE REPORT Name: DOT AGUSTIN Room: [address]R.#: [id number] Admission: 05/08/19 Attend Phys: Keya Rajput MD Discharge: 05/25/19 Date of : 59 Report #: [id number] THIS REPORT FOR: //name// CC: MANUEL physician/PCP Keya Rajput DATE OF SERVICE: 05/18/2019 SURGEON: Demarcus Bowie DPM PREOPERATIVE DIAGNOSIS: Osteomyelitis with deep tissue infection, right foot. POSTOPERATIVE DIAGNOSIS: Osteomyelitis with deep tissue infection, right foot. PROCEDURE: Tarsometatarsal disarticulation amputation with primary closure. ANESTHESIA: General LMA. INJECTABLES: 30 mL of a 1:1 mixture of 0.5% Marcaine plain and 1% lidocaine plain. ESTIMATED BLOOD LOSS: Minimal. TOURNIQUETS: None. SPECIMENS: Right forefoot to include the first, second and third metatarsals and the remaining portions of the fourth and fifth metatarsals. Also, the right first, second and third toes. CULTURES: None. SUTURES: 2-0 nylon. DESCRIPTION OF PROCEDURE: The patient was taken to the OR and placed on the table supine with induction of general LMA anesthesia. A right ankle block was given. The extremity was prepped and draped aseptically and no tourniquet was utilized. A #10 blade was used to create a fishmouth type incision around the right distal forefoot with disarticulation of the first through fifth metatarsals from their tarsal bones. I utilized a sagittal saw to remove the second and third metatarsals at the proximal bases since the metatarsocuneiform joints were severely arthrodesed. I debrided the wound interior of tendons and fibronecrotic tissue. Electrocautery was used for hemostasis. The plantar skin flap was remodeled to facilitate primary closure. The skin flap was mobilized dorsally and sutured with 2-0 nylon in simple interrupted fashion for complete surgical closure with no residual open wounds. The foot was cleansed and dried and a sterile bandage was applied with Aquacel Ag, fluffs, [place] [address] OPERATIVE REPORT Name: DOT AGUSTIN Room: [address]#: [id number] Admission: 05/08/19 Attend Phys: Keya Rajput MD Discharge: 05/25/19 Date of : 59 Report #: [id number] sis. There is no active bleeding or complications noted. The patient left the OR with no pain or complications noted. <ELECTRONICALLY SIGNED> By: Demarcus Bowie DPM 05/27/19 0954 0739 [id number] Bowie DPM /nt
--- NOTE | 2019-05-27 09:54 | CON ---
[address] [address] CONSULTATION Name: DOT AGUSTIN Room: [address] IN M.R.#: [id number] Admission: 05/08/19 Attend Phys: Keya Rajput MD Discharge: 05/25/19 Date of : 59 Report #: [id number] THIS REPORT FOR: //name// CC: MANUEL physician/PCP Keya Rajput DATE OF SERVICE: 05/19/2019 CHIEF COMPLAINT: Status post Lisfranc amputation with primary closure performed yesterday. He is resting comfortably, stable vitals, hemoglobin 8.3, no active bleeding or drainage. He remains nonweightbearing to the extremity. He dialyzed today; low-grade fever of 100.9, persistent leukocytosis. First surgical cultures grew methicillin-resistant Staphylococcus aureus and group B streptococcus. He is on parenteral vancomycin with dialysis per Dr. Hinojosa. LABORATORY DATA: WBC 19.1, RBC 2.77, hemoglobin 8.3, hematocrit 24.7, BUN 20, creatinine 4.6, glucose 115. PHYSICAL EXAMINATION: On physical examination, the incision is well approximated with no inflammation, drainage, or bleeding; slight cyanotic appearance to the plantar medial skin flap. No nabila necrosis or gangrene. The foot is warm; no fluctuance or crepitation; no popliteal adenopathy or calf pain. IMPRESSION: Osteomyelitis with deep tissue infection of the right foot, status post Lisfranc amputation with primary closure. PLAN: The incision was cleansed and redressed with Aquacel Ag, ABD, and Kerlix. The patient is to remain strictly nonweightbearing to the extremity; we will monitor; guarded prognosis due to peripheral arterial disease. <ELECTRONICALLY SIGNED> By: Demarcus Bowie DPM 05/27/19 0954 1218 [id number] Bowie DPM /nt
== END 2019-05-25 13:10 | DRG 853 ==
LOC: M.ERS 20:54 → M.2W 23:15 → M.TBA-ER 23:15 → M.2W 05-09 00:45 → M.3W 05-15 17:03
PROVIDERS: Emergency Medicine; Family Medicine; Internal Medicine; Internal Medicine Nephrology; Physician Assistant Surgical; ADMIT Internal Medicine
DX: A40.0 Sepsis due to streptococcus, group A (principal); N18.6 End stage renal disease; G92 Toxic encephalopathy; N17.9 Acute kidney failure, unspecified; E11.52 Type 2 diabetes mellitus with diabetic peripheral angiopathy with gangrene; I96 Gangrene, not elsewhere classified; I42.9 Cardiomyopathy, unspecified; M86.8X7 Other osteomyelitis, ankle and foot; D62 Acute posthemorrhagic anemia; I13.2 Hypertensive heart and chronic kidney disease with heart failure and with stage 5 chronic kidney disease, or end stage renal disease; Z86.73 Personal history of transient ischemic attack (TIA), and cerebral infarction without residual deficits; I50.9 Heart failure, unspecified; E11.22 Type 2 diabetes mellitus with diabetic chronic kidney disease; F31.9 Bipolar disorder, unspecified; E11.69 Type 2 diabetes mellitus with other specified complication; E11.40 Type 2 diabetes mellitus with diabetic neuropathy, unspecified; F03.90 Unspecified dementia, unspecified severity, without behavioral disturbance, psychotic disturbance, mood disturbance, and anxiety; E11.621 Type 2 diabetes mellitus with foot ulcer; D64.9 Anemia, unspecified; K21.9 Gastro-esophageal reflux disease without esophagitis; Z66 Do not resuscitate; Z79.899 Other long term (current) drug therapy

== ENCOUNTER → 2019-06-07 | Outpatient (CLI) | payer MEDICAID ==
[~2019-06-07] MED LIST changes: +LANTUS SUBQ; +VANCOMYCIN IVPB
--- NOTE | 2019-06-08 12:16 | CON ---
[address] [address] CONSULTATION Name: VAMSIDOT RODGERSOY Room: [facility] [place]ante.#: [id number] Admission: 06/07/19 Attend Phys: Demarcus Bowie DPM Discharge: Date of : 59 Report #: [id number] THIS REPORT FOR: //name// CC: Demarcus Bowie [facility] physician/PCP DATE OF SERVICE: 06/07/2019 INFECTIOUS DISEASE CONSULTATION FOLLOWUP ATTENDING PHYSICIAN: Dr. Demarcus Bowie. HISTORY OF PRESENT ILLNESS: He is here for followup post-transmetatarsal amputation involving his right foot. He is with primary closure. This is due to multifocal osteomyelitis. Generally, he appears of a diminished affect. On questioning, he denies any significant pain associated with the site, although there is a degree of peripheral neuropathy. Generally, he has a variable appetite, although per brother he is able to eat well when the food is to his liking. He is still undergoing hemodialysis, getting vancomycin thrice weekly to treat the deep infection involving his foot. On examination, the majority of the wound is well approximated with sutures. There is some mild dehiscence laterally along the incision line. There is a mild degree of inflammation at this point. ASSESSMENT AND PLAN: Chronic osteomyelitis. We will continue current approach with the thrice weekly parenteral vancomycin at the conclusion of dialysis for the next couple of weeks. At that point, we will reevaluate, may well have the suture removal at that point and we will see how he does. <ELECTRONICALLY SIGNED> By: Philip Hinojosa MD 06/08/19 1216 0829 [id number] Hinojosa MD /nt
== END ==
LOC: M.WC 14:00
DX: T87.89 Other complications of amputation stump (principal); E11.621 Type 2 diabetes mellitus with foot ulcer; L97.411 Non-pressure chronic ulcer of right heel and midfoot limited to breakdown of skin; E11.42 Type 2 diabetes mellitus with diabetic polyneuropathy; E11.51 Type 2 diabetes mellitus with diabetic peripheral angiopathy without gangrene; E11.36 Type 2 diabetes mellitus with diabetic cataract; E11.69 Type 2 diabetes mellitus with other specified complication; M86.8X7 Other osteomyelitis, ankle and foot; E11.22 Type 2 diabetes mellitus with diabetic chronic kidney disease; I13.2 Hypertensive heart and chronic kidney disease with heart failure and with stage 5 chronic kidney disease, or end stage renal disease; N18.6 End stage renal disease; I50.9 Heart failure, unspecified; K21.9 Gastro-esophageal reflux disease without esophagitis; F03.90 Unspecified dementia, unspecified severity, without behavioral disturbance, psychotic disturbance, mood disturbance, and anxiety; Z79.4 Long term (current) use of insulin; Z79.82 Long term (current) use of aspirin; Z99.2 Dependence on renal dialysis; Z89.422 Acquired absence of other left toe(s); Z86.73 Personal history of transient ischemic attack (TIA), and cerebral infarction without residual deficits; Y83.5 Amputation of limb(s) as the cause of abnormal reaction of the patient, or of later complication, without mention of misadventure at the time of the procedure

== ENCOUNTER → 2019-07-12 | Outpatient (CLI) | payer MEDICAID ==
--- NOTE | 2019-07-13 12:18 | CON ---
[address] [address] CONSULTATION Name: VAMSIDOT MULLINS Room: [facility].#: [id number] Admission: 07/12/19 Attend Phys: Demarcus Bowie DPM Discharge: Date of : 59 Report #: [id number] THIS REPORT FOR: //name// CC: Demarcus Bowie NO PCP DATE OF SERVICE: 07/12/2019 INFECTIOUS DISEASE CONSULTATION FOLLOWUP ATTENDING PHYSICIAN: Demarcus Bowie DPM HISTORY OF PRESENT ILLNESS: He is here for followup osteomyelitis involving the medial aspect of the right foot. He is post-osteoectomy with transmetatarsal amputation, returns today in followup having last seen roughly 3 weeks ago. He denies any significant pain or discomfort associated with the distal right lower extremity, although he does have a degree of peripheral neuropathy. There is a note saying he missed last couple doses of parenteral antibiotics due to loss of his central venous access, although he had completed in excess of 6 weeks to this point. On examination, the incision is transversely oriented, still has sutures in place. Laterally, there is an area of what appears to be dehiscence with infarcted tissue was present. Dr. Bowie removed all the sutures and the tissue. There is reasonable amount of bleeding. It is not overtly inflamed at this point. There is no purulence, no odor. ASSESSMENT AND PLAN: Chronic osteomyelitis. At this point, we would not extend the antibiotics. He will need ongoing wound care due to the incisional dehiscence laterally, but would defer to Dr. Bowie. We will be available as needed. <ELECTRONICALLY SIGNED> By: Philip Hinojosa MD 07/13/19 1218 0839 [id number] Hinojosa MD /nt
== END ==
LOC: M.WC 13:57
DX: T87.81 Dehiscence of amputation stump (principal); E11.621 Type 2 diabetes mellitus with foot ulcer; L97.412 Non-pressure chronic ulcer of right heel and midfoot with fat layer exposed; E11.42 Type 2 diabetes mellitus with diabetic polyneuropathy; E11.51 Type 2 diabetes mellitus with diabetic peripheral angiopathy without gangrene; E11.36 Type 2 diabetes mellitus with diabetic cataract; E11.22 Type 2 diabetes mellitus with diabetic chronic kidney disease; I13.0 Hypertensive heart and chronic kidney disease with heart failure and stage 1 through stage 4 chronic kidney disease, or unspecified chronic kidney disease; N18.6 End stage renal disease; I50.9 Heart failure, unspecified; K21.9 Gastro-esophageal reflux disease without esophagitis; Z79.4 Long term (current) use of insulin; Z99.2 Dependence on renal dialysis; Z89.421 Acquired absence of other right toe(s); Z89.422 Acquired absence of other left toe(s); Z86.73 Personal history of transient ischemic attack (TIA), and cerebral infarction without residual deficits; Z79.82 Long term (current) use of aspirin; Y83.5 Amputation of limb(s) as the cause of abnormal reaction of the patient, or of later complication, without mention of misadventure at the time of the procedure

== ENCOUNTER → 2019-07-26 | Outpatient (CLI) | payer MEDICAID | LOC: M.WC 05:08 | DX: T87.89 Other complications of amputation stump (principal); E11.621 Type 2 diabetes mellitus with foot ulcer; L97.412 Non-pressure chronic ulcer of right heel and midfoot with fat layer exposed; L84 Corns and callosities; E11.51 Type 2 diabetes mellitus with diabetic peripheral angiopathy without gangrene; E11.22 Type 2 diabetes mellitus with diabetic chronic kidney disease; I13.2 Hypertensive heart and chronic kidney disease with heart failure and with stage 5 chronic kidney disease, or end stage renal disease; I50.9 Heart failure, unspecified; N18.6 End stage renal disease; E11.42 Type 2 diabetes mellitus with diabetic polyneuropathy; E11.69 Type 2 diabetes mellitus with other specified complication; M86.8X7 Other osteomyelitis, ankle and foot; E11.36 Type 2 diabetes mellitus with diabetic cataract; K21.9 Gastro-esophageal reflux disease without esophagitis; F03.90 Unspecified dementia, unspecified severity, without behavioral disturbance, psychotic disturbance, mood disturbance, and anxiety; Z79.4 Long term (current) use of insulin; Z79.82 Long term (current) use of aspirin; Z99.2 Dependence on renal dialysis; Z86.73 Personal history of transient ischemic attack (TIA), and cerebral infarction without residual deficits; Y83.5 Amputation of limb(s) as the cause of abnormal reaction of the patient, or of later complication, without mention of misadventure at the time of the procedure ==

== ENCOUNTER → 2019-08-09 | Outpatient (CLI) | payer MEDICAID | LOC: M.WC 02:24 | DX: T87.89 Other complications of amputation stump (principal); E11.621 Type 2 diabetes mellitus with foot ulcer; L97.412 Non-pressure chronic ulcer of right heel and midfoot with fat layer exposed; E11.51 Type 2 diabetes mellitus with diabetic peripheral angiopathy without gangrene; E11.36 Type 2 diabetes mellitus with diabetic cataract; E11.42 Type 2 diabetes mellitus with diabetic polyneuropathy; E11.22 Type 2 diabetes mellitus with diabetic chronic kidney disease; I13.2 Hypertensive heart and chronic kidney disease with heart failure and with stage 5 chronic kidney disease, or end stage renal disease; I50.9 Heart failure, unspecified; N18.6 End stage renal disease; K21.9 Gastro-esophageal reflux disease without esophagitis; Z86.73 Personal history of transient ischemic attack (TIA), and cerebral infarction without residual deficits; Y83.5 Amputation of limb(s) as the cause of abnormal reaction of the patient, or of later complication, without mention of misadventure at the time of the procedure ==

== ENCOUNTER → 2019-08-23 | Outpatient (CLI) | payer MEDICAID | LOC: M.WC 00:21 | DX: T87.89 Other complications of amputation stump (principal); E11.621 Type 2 diabetes mellitus with foot ulcer; L97.412 Non-pressure chronic ulcer of right heel and midfoot with fat layer exposed; L84 Corns and callosities; E11.36 Type 2 diabetes mellitus with diabetic cataract; E11.42 Type 2 diabetes mellitus with diabetic polyneuropathy; E11.69 Type 2 diabetes mellitus with other specified complication; M86.8X7 Other osteomyelitis, ankle and foot; E11.51 Type 2 diabetes mellitus with diabetic peripheral angiopathy without gangrene; E11.22 Type 2 diabetes mellitus with diabetic chronic kidney disease; I13.2 Hypertensive heart and chronic kidney disease with heart failure and with stage 5 chronic kidney disease, or end stage renal disease; I50.9 Heart failure, unspecified; N18.6 End stage renal disease; K21.9 Gastro-esophageal reflux disease without esophagitis; F03.90 Unspecified dementia, unspecified severity, without behavioral disturbance, psychotic disturbance, mood disturbance, and anxiety; Z99.2 Dependence on renal dialysis; Z86.73 Personal history of transient ischemic attack (TIA), and cerebral infarction without residual deficits; Y83.5 Amputation of limb(s) as the cause of abnormal reaction of the patient, or of later complication, without mention of misadventure at the time of the procedure ==

== ENCOUNTER → 2019-09-06 | Outpatient (CLI) | payer MEDICAID | LOC: M.WC 04:26 | DX: T87.89 Other complications of amputation stump (principal); E11.621 Type 2 diabetes mellitus with foot ulcer; L97.412 Non-pressure chronic ulcer of right heel and midfoot with fat layer exposed; L84 Corns and callosities; E11.51 Type 2 diabetes mellitus with diabetic peripheral angiopathy without gangrene; I13.2 Hypertensive heart and chronic kidney disease with heart failure and with stage 5 chronic kidney disease, or end stage renal disease; I50.9 Heart failure, unspecified; N18.6 End stage renal disease; E11.36 Type 2 diabetes mellitus with diabetic cataract; E11.42 Type 2 diabetes mellitus with diabetic polyneuropathy; K21.9 Gastro-esophageal reflux disease without esophagitis; F03.90 Unspecified dementia, unspecified severity, without behavioral disturbance, psychotic disturbance, mood disturbance, and anxiety; Z86.73 Personal history of transient ischemic attack (TIA), and cerebral infarction without residual deficits; Y83.5 Amputation of limb(s) as the cause of abnormal reaction of the patient, or of later complication, without mention of misadventure at the time of the procedure ==

== ENCOUNTER → 2019-09-21 | Outpatient (CLI) | payer MEDICAID | LOC: M.WC 09-20 11:40 | DX: E11.621 Type 2 diabetes mellitus with foot ulcer (principal); L97.412 Non-pressure chronic ulcer of right heel and midfoot with fat layer exposed; E11.51 Type 2 diabetes mellitus with diabetic peripheral angiopathy without gangrene; E11.22 Type 2 diabetes mellitus with diabetic chronic kidney disease; I13.2 Hypertensive heart and chronic kidney disease with heart failure and with stage 5 chronic kidney disease, or end stage renal disease; N18.6 End stage renal disease; I50.9 Heart failure, unspecified; E11.36 Type 2 diabetes mellitus with diabetic cataract; E11.42 Type 2 diabetes mellitus with diabetic polyneuropathy; K21.9 Gastro-esophageal reflux disease without esophagitis; Z89.422 Acquired absence of other left toe(s); Z89.421 Acquired absence of other right toe(s); Z86.73 Personal history of transient ischemic attack (TIA), and cerebral infarction without residual deficits ==

== ENCOUNTER → 2019-10-05 | Outpatient (CLI) | payer MEDICAID | LOC: M.WC 01:29 | DX: T87.89 Other complications of amputation stump (principal); E11.621 Type 2 diabetes mellitus with foot ulcer; L97.412 Non-pressure chronic ulcer of right heel and midfoot with fat layer exposed; L84 Corns and callosities; E11.42 Type 2 diabetes mellitus with diabetic polyneuropathy; E11.51 Type 2 diabetes mellitus with diabetic peripheral angiopathy without gangrene; E11.36 Type 2 diabetes mellitus with diabetic cataract; E11.22 Type 2 diabetes mellitus with diabetic chronic kidney disease; I13.0 Hypertensive heart and chronic kidney disease with heart failure and stage 1 through stage 4 chronic kidney disease, or unspecified chronic kidney disease; I50.9 Heart failure, unspecified; N18.6 End stage renal disease; K21.9 Gastro-esophageal reflux disease without esophagitis; Z86.73 Personal history of transient ischemic attack (TIA), and cerebral infarction without residual deficits; Y83.5 Amputation of limb(s) as the cause of abnormal reaction of the patient, or of later complication, without mention of misadventure at the time of the procedure ==